=== PATIENT | female | born 1975 | race Caucasian/White ===

== ENCOUNTER 2016-12-01 22:28 | Observation (INO) | payer BC, OTHER ==
[2016-12-01] MEDS ORDERED: MORPHINE SULFATE 4 MG/ML SYRINGE IV STA (23:00)
[2016-12-01] MEDS ORDERED: SODIUM CHLORIDE 0.9% 1,000 ML IV STA (23:00)
[2016-12-01] MEDS ORDERED: NITROGLYCERIN SL TABS 0.4 MG TAB SUBLINGUAL PRN (23:00)
[2016-12-01] MEDS ORDERED: NITROGLYCERIN SL TABS 0.4 MG TAB SUBLINGUAL STA (23:00)
[2016-12-01] MEDS ORDERED: ASPIRIN 81 MG PO STA (23:00)
--- NOTE | 2016-12-01 23:05 | ED ---
General Adult HPI - General Chief complaint: Chest Pain Stated complaint: Chest Pain Time Seen by Provider: 12/01/16 22:38 Source: patient, RN notes reviewed, old records reviewed Mode of arrival: EMS Limitations: no limitations - History of Present Illness Initial comments: This is a 41-year-old female via for evaluation of chest pain, severe left- sided chest pain rating her back heaviness pressure in her chest. Patient's strong family history including multiple cardiac by family members. Patient is currently with chest pain at this time. Mild source of breath no diaphoresis. Patient states she was in the hospital on for about 8-10 hours and evaluated with multiple troponins and then discharged home - Related Data Previous Rx's Medication Instructions Recorded Aspirin 325 mg PO DAILY #30 tab 12/03/16 Atorvastatin [Lipitor] 80 mg PO DAILY #30 tab 12/03/16 Clopidogrel [Plavix] 75 mg PO DAILY #30 tab 12/03/16 Lisinopril [Zestril] 10 mg PO DAILY #30 tab 12/03/16 Metoprolol Tartrate [Lopressor] 25 mg PO BID #60 tab 12/03/16 Nitroglycerin Sl Tabs [Nitrostat] 0.4 mg SUBLINGUAL Q5M PRN #25 tab 12/03/16 Allergies Allergy/AdvReac Type Severity Reaction Status Date / Time promethazine [From Phenergan] AdvReac Unknown Verified 12/02/16 09:12 VINEGAR Allergy Unknown Uncoded 12/02/16 09:12 Review of Systems ROS Statement: Those systems with pertinent positive or pertinent negative responses have been documented in the HPI. ROS Other: All systems not noted in ROS Statement are negative. Past Medical History Past Medical History: No Reported History, Diabetes Mellitus, Fibromyalgia History of Any Multi-Drug Resistant Organisms: MRSA Past Surgical History: Appendectomy, Cholecystectomy, Hysterectomy, Orthopedic Surgery Past Psychological History: Anxiety, Depression Smoking Status: Current every day smoker Past Alcohol Use History: None Reported Past Drug Use History: None Reported - Past Family History Mother Family Medical History: Cancer, Diabetes Mellitus Additional Family Medical History / Comment(s): multiple personalities, placental cancer, heart issues Father Family Medical History: Coronary Artery Disease (CAD), Myocardial Infarction ([place] ) Daughter(s) Additional Family Medical History / Comment(s): severe depression Son(s) Additional Family Medical History / Comment(s): heart issues General Exam Limitations: no limitations General appearance: alert, in no apparent distress Head exam: Present: atraumatic, normocephalic, normal inspection Eye exam: Present: normal appearance, PERRL, EOMI. Absent: scleral icterus, conjunctival injection, periorbital swelling ENT exam: Present: normal exam, mucous membranes moist Neck exam: Present: normal inspection. Absent: tenderness, meningismus, lymphadenopathy Respiratory exam: Present: normal lung sounds bilaterally. Absent: respiratory distress, wheezes, rales, rhonchi, stridor Cardiovascular Exam: Present: regular rate, normal rhythm, normal heart sounds. Absent: systolic murmur, diastolic murmur, rubs, gallop, clicks GI/Abdominal exam: Present: soft, normal bowel sounds. Absent: distended, tenderness, guarding, rebound, rigid Extremities exam: Present: normal inspection, full ROM, normal capillary refill. Absent: tenderness, pedal edema, joint swelling, calf tenderness Back exam: Present: normal inspection Neurological exam: Present: alert, oriented X3, CN II-XII intact Psychiatric exam: Present: normal affect, normal mood Skin exam: Present: warm, dry, intact, normal color. Absent: rash Course Vital Signs 12/01/16 12/01/16 12/01/16 22:43 22:49 23:10 Temperature 98.8 F Pulse Rate 67 87 Pulse Rate [ 77 Guest Services Agent ] Respiratory 18 18 Rate Blood Pressure 135/66 126/79 O2 Sat by Pulse 97 96 Oximetry 12/01/16 12/02/16 23:56 00:00 Temperature 98.7 F Pulse Rate 68 Pulse Rate [ Guest Services Agent ] Respiratory 18 18 Rate Blood Pressure 138/64 O2 Sat by Pulse 98 Oximetry - Reevaluation(s) Reevaluation #1: 12/01/16 23:04 [place] surrounding significant medical history family history EKG Findings - EKG Comments: EKG Findings:: EKG shows normal sinus rhythm rate of 60, MO 150, QRS 96, QTC 429 Medical Decision Making - Medical Decision Making 41 female at ER for evaluation. Patient has history of chest pain coming in with chest pain today. Patient has severe chest pain, at this time patient's EKG and troponin are negative. We'll admit for cardiac observation - Lab Data Result diagrams: 12/03/16 05:25 12/03/16 05:25 Lab Results 12/01/16 12/01/16 12/01/16 Range/Units 22:40 22:40 22:40 WBC 10.8 H (3.8-10.6) k/uL RBC 4.19 (3.80-5.40) m/uL Hgb 12.8 (11.4-16.0) gm/dL Hct 38.1 (34.0-46.0) % MCV 90.9 (80.0-100.0) fL MCH 30.6 (25.0-35.0) pg MCHC 33.6 (31.0-37.0) g/dL RDW 13.3 (11.5-15.5) % Plt Count 468 H (150-450) k/uL Neutrophils % 59 % Lymphocytes % 31 % Monocytes % 5 % Eosinophils % 3 % Basophils % 1 % Neutrophils # 6.4 (1.3-7.7) k/uL Lymphocytes # 3.4 (1.0-4.8) k/uL Monocytes # 0.5 (0-1.0) k/uL Eosinophils # 0.3 (0-0.7) k/uL Basophils # 0.1 (0-0.2) k/uL PT 9.9 (9.0-12.0) sec INR 1.0 (<1.2) APTT 22.1 (22.0-30.0) sec D-Dimer 0.43 (<0.60) mg/L FEU Sodium 139 (137-145) mmol/L Potassium 3.7 (3.5-5.1) mmol/L Chloride 110 H (98-107) mmol/L Carbon Dioxide 15 L (22-30) mmol/L Anion Gap 14 mmol/L BUN 11 (7-17) mg/dL Creatinine 0.60 (0.52-1.04) mg/dL Est GFR (MDRD) Af Amer >60 (>60 ml/min/1.73 sqM) Est GFR (MDRD) Non-Af >60 (>60 ml/min/1.73 sqM) Glucose 236 H (74-99) mg/dL Estimated Ave Glu mg/dL mg/dL Hemoglobin A1c (4.2-6.1) % Calcium 9.7 (8.4-10.2) mg/dL Magnesium 1.7 (1.6-2.3) mg/dL Total Bilirubin 0.3 (0.2-1.3) mg/dL AST 14 (14-36) U/L ALT 29 (9-52) U/L Alkaline Phosphatase 83 (38-126) U/L Total Creatine Kinase (30-135) U/L CK-MB (CK-2) (0.0-2.4) ng/mL CK-MB (CK-2) Rel Index Troponin I (0.000-0.034) ng/mL Total Protein 7.2 (6.3-8.2) g/dL Albumin 3.9 (3.5-5.0) g/dL Lipase 177 (23-300) U/L 12/01/16 12/01/16 Range/Units 22:40 22:40 WBC (3.8-10.6) k/uL RBC (3.80-5.40) m/uL Hgb (11.4-16.0) gm/dL Hct (34.0-46.0) % MCV (80.0-100.0) fL MCH (25.0-35.0) pg MCHC (31.0-37.0) g/dL RDW (11.5-15.5) % Plt Count (150-450) k/uL Neutrophils % % Lymphocytes % % Monocytes % % Eosinophils % % Basophils % % Neutrophils # (1.3-7.7) k/uL Lymphocytes # (1.0-4.8) k/uL Monocytes # (0-1.0) k/uL Eosinophils # (0-0.7) k/uL Basophils # (0-0.2) k/uL PT (9.0-12.0) sec INR (<1.2) APTT (22.0-30.0) sec D-Dimer (<0.60) mg/L FEU Sodium (137-145) mmol/L Potassium (3.5-5.1) mmol/L Chloride (98-107) mmol/L Carbon Dioxide (22-30) mmol/L Anion Gap mmol/L BUN (7-17) mg/dL Creatinine (0.52-1.04) mg/dL Est GFR (MDRD) Af Amer (>60 ml/min/1.73 sqM) Est GFR (MDRD) Non-Af (>60 ml/min/1.73 sqM) Glucose (74-99) mg/dL Estimated Ave Glu mg/dL 163 mg/dL Hemoglobin A1c 7.3 H (4.2-6.1) % Calcium (8.4-10.2) mg/dL Magnesium (1.6-2.3) mg/dL Total Bilirubin (0.2-1.3) mg/dL AST (14-36) U/L ALT (9-52) U/L Alkaline Phosphatase (38-126) U/L Total Creatine Kinase 42 (30-135) U/L CK-MB (CK-2) <0.2 (0.0-2.4) ng/mL CK-MB (CK-2) Rel Index Troponin I <0.012 (0.000-0.034) ng/mL Total Protein (6.3-8.2) g/dL Albumin (3.5-5.0) g/dL Lipase (23-300) U/L - Radiology Data Radiology results: report reviewed (Chest x-ray is negative for acute disease), image reviewed Critical Care Time Critical Care Time: Yes Total Critical Care Time: 31 Disposition Clinical Impression: Chest pain Disposition: ADMITTED IP TO THIS [facility] Condition: Stable
[2016-12-01 23:11] LABS: Basophils # (A) 0.1 k/uL (0-0.2); Basophils % (A) 1 %; CH 31.9; CHCM 35.3; Eosinophils # (A) 0.3 k/uL (0-0.7); Eosinophils % (A) 3 %; HCT 38.1 % (34.0-46.0); HDW 2.46; HGB 12.8 gm/dL (11.4-16.0); Luc # (Auto) 0.16; Luc % (Auto) 2; Lymphocytes # (A) 3.4 k/uL (1.0-4.8); Lymphocytes % (A) 31 %; MCH 30.6 pg (25.0-35.0); MCHC 33.6 g/dL (31.0-37.0); MCV 90.9 fL (80.0-100.0); Mean Platelet Volume 7.4; Monocytes # (A) 0.5 k/uL (0-1.0); Monocytes % (A) 5 %; Neutrophils # (A) 6.4 k/uL (1.3-7.7); Neutrophils % (A) 59 %; RBC 4.19 m/uL (3.80-5.40); RDW 13.3 % (11.5-15.5); WBC 10.8 k/uL (3.8-10.6); WBC (Perox) 11.71
[2016-12-01 23:20] LABS: ALT 29 U/L (9-52); AST 14 U/L (14-36); Alkaline Phosphatase 83 U/L (38-126); Anion Gap 14 mmol/L; Blood Urea Nitrogen 11 mg/dL (7-17); Calcium 9.7 mg/dL (8.4-10.2); Carbon Dioxide 15 mmol/L (22-30); Chloride 110 mmol/L (98-107); Glucose 236 mg/dL (74-99); Magnesium 1.7 mg/dL (1.6-2.3); Non-African American GFR(MDRD) >60 (>60 ml/min/1.73 sqM); Potassium 3.7 mmol/L (3.5-5.1); Sodium 139 mmol/L (137-145); Total Bilirubin 0.3 mg/dL (0.2-1.3); Total Protein 7.2 g/dL (6.3-8.2)
[2016-12-01 23:28] LABS: Partial Thromboplastin Time 22.1 sec (22.0-30.0); Prothrombin Time 9.9 sec (9.0-12.0)
--- NOTE | 2016-12-01 23:28 | XR ---
ADDENDUM - Added by Elba Ralph MD on 12/01/2016 11:29 PM (-07:00) Impression: No acute process. Partially absent right distal clavicle - Correlate with history. EXAM: XR Chest, 2 Views CLINICAL HISTORY: Reason: Chest Pain TECHNIQUE: Frontal and lateral views of the chest. COMPARISON: No relevant prior studies available. FINDINGS: Lungs: Unremarkable. No consolidation. Pleural space: Unremarkable. No pneumothorax. Heart: Unremarkable. No cardiomegaly. Mediastinum: Unremarkable. Bones/joints: Partially absent distal right clavicle. IMPRESSION: Correlate with history.
[2016-12-01 23:30] LABS: Creatine Kinase 42 U/L (30-135)
[2016-12-01 23:43] LABS: Creatine Kinase MB <0.2 ng/mL (0.0-2.4); Troponin I <0.012 ng/mL (0.000-0.034)
[2016-12-02] MEDS ORDERED: MORPHINE SULFATE 4 MG/ML SYRINGE IVP STA (01:34)
[2016-12-02] MEDS ORDERED: KETOROLAC 30 MG/ML 1 ML VIAL IVP STA (01:48)
--- NOTE | 2016-12-02 02:13 | P.HPIM ---
History of Present Illness H&P Date: 12/02/16 Chief Complaint: Chest pain 41-year-old female with history of diabetes mellitus insulin admitted for complaint of chest pain started 2-1/2 days ago. Pain started about patient sitting and not doing anything particular. Not associated prior eating. Patient's pain is described as sharp right-sided anterior chest with radiation across to both shoulders, moderate intensity. No particular provoking factors identified by patient. Pain has been constant since 2 days ago and not changing in intensity or quality. Pain is worse with deep breaths and movements and better less movements. She also noticed occasional dyspnea due to pain but no any severe problems breathing cough expectoration, nausea, vomiting, heartburn, belching." Her gall bladder was removed. Patient didn't try anything for pain home. In 2010 patient had similar chest pain and underwent cardiac catheterization and was told that she does not have coronary disease and that her pain was likely due to anxiety. Since then she did not have any chest pain and She has not been taking any aspirin or statin. Yesterday she went to the ER at outside institution. They check her troponins and told her that she is again sent home on Percocet. Since her pain continued constantly she came back to MRSA department and was admitted for further. In the emergency department EKG no showed normal sinus rhythm without any significant changes and first set of troponin was negative. D-dimer was normal. Review of Systems Constitutional: Denies chills, Denies fever Eyes: denies blurred vision, denies pain Ears, nose, mouth and throat: Denies headache, Denies sore throat Cardiovascular: Reports as per HPI Gastrointestinal: Reports as per HPI Genitourinary: Denies dysuria, Denies hematuria Musculoskeletal: Denies myalgias Integumentary: Denies pruritus, Denies rash Neurological: Denies numbness, Denies weakness Psychiatric: Denies anxiety, Denies depression Endocrine: Denies fatigue, Denies weight change Past Medical History Past Medical History: Diabetes Mellitus, Fibromyalgia Additional Past Medical History / Comment(s): IBD History of Any Multi-Drug Resistant Organisms: MRSA Date of last positivie culture/infection: 2006 MDRO Source:: buttock and knee cap Past Surgical History: Appendectomy, Cholecystectomy, Hysterectomy, Orthopedic Surgery Additional Past Surgical History / Comment(s): right knee, hip, elbow and shoulder surgeries Past Anesthesia/Blood Transfusion Reactions: Previous Problems w/ Anesthesia Additional Past Anesthesia/Blood Transfusion Reaction / Comment(s): pt states that she has had a hard time "waking up" and also states that they did something different with her last surgery and she had no issues Past Psychological History: Anxiety, Depression Smoking Status: Current every day smoker Past Alcohol Use History: None Reported Additional Past Alcohol Use History / Comment(s): pt states that she has smoked on and off since the age of 19 Past Drug Use History: None Reported - Past Family History Mother Family Medical History: Cancer, Diabetes Mellitus Additional Family Medical History / Comment(s): multiple personalities, placental cancer, heart issues Father Family Medical History: Coronary Artery Disease (CAD), Myocardial Infarction ([place] ) Daughter(s) Additional Family Medical History / Comment(s): severe depression Son(s) Additional Family Medical History / Comment(s): heart issues Medications and Allergies Home Medications Medication Instructions Recorded Confirmed Type Insulin Glargine [Lantus] 10 unit SQ DAILY 12/02/16 12/02/16 History Insulin Glargine [Lantus] 15 unit SQ HS 12/02/16 12/02/16 History oxyCODONE-APAP 5-325MG [Percocet 1 tab PO Q6HR PRN 12/02/16 12/02/16 History 5-325 mg] Allergies Allergy/AdvReac Type Severity Reaction Status Date / Time promethazine [From Phenergan] AdvReac Unknown Verified 12/02/16 00:22 Physical Exam Vitals: Vital Signs Temp Pulse Pulse Resp BP BP Pulse Ox 12/02/16 00:23 97.9 F 79 18 137/76 97 12/02/16 00:00 18 12/01/16 23:56 98.7 F 68 18 138/64 98 12/01/16 23:10 87 18 126/79 96 12/01/16 22:49 77 12/01/16 22:43 98.8 F 67 18 135/66 97 Intake and Output 12/01/16 12/01/16 12/02/16 14:59 22:59 06:59 Other: Voiding Method Toilet Weight 77.111 kg Patient Weight 12/02/16 06:59 Weight 77.111 kg - Constitutional General appearance: no acute distress - EENT Eyes: EOMI - Neck Neck: no lymphadenopathy - Respiratory Respiratory: bilateral: CTA - Cardiovascular Rhythm: regular Heart sounds: normal: S1, S2 - Gastrointestinal General gastrointestinal: no organomegaly, soft, no tenderness - Neurologic Neurologic: CNII-XII intact - Musculoskeletal Musculoskeletal: strength equal bilaterally Tenderness to palpation over the costochondral joints on the right side third and fourth. Results CBC & Chem 7: 12/01/16 22:40 12/01/16 22:40 Labs: Abnormal Lab Results - Last 24 Hours (Table) 12/01/16 12/01/16 Range/Units 22:40 22:40 WBC 10.8 H (3.8-10.6) k/uL Plt Count 468 H (150-450) k/uL Chloride 110 H (98-107) mmol/L Carbon Dioxide 15 L (22-30) mmol/L Glucose 236 H (74-99) mg/dL Thrombosis Risk Factor Assmnt - DVT/VTE Prophylaxis DVT/VTE Prophylaxis: Low risk, early ambulation encouraged - Choose All That Apply Any of the Below Risk Factors Present?: Yes Each Factor Represents 1 point: Age 41-60 years, Hx of IBD, Obesity (BMI >25) Other Risk Factors: No Other congenital or acquired thrombophilia - If yes, enter type in comment: No Thrombosis Risk Factor Assessment Total Risk Factor Score: 3 Thrombosis Risk Factor Assessment Level: Moderate Risk Assessment and Plan (1) Chest pain Narrative/Plan: Chest pain atypical in nature, due to risk factors of diabetes, obesity, family history admitted for further evaluation Cardiology consulted Analgesics with addition of NSAIDs Pending a repeat troponin Continue aspirin and statin Status: Acute (2) Type 2 diabetes mellitus, with long-term current use of insulin Narrative/Plan: Patient has not been taking her insulin currently stating that her sugars are usually normal low Here in admission her blood sugar was in 236 Will order sliding scale for now on diabetic diet Preparation last A1c was around 7.1 Status: Acute Time with Patient: Greater than 30
[2016-12-02 06:27] LABS: Cholesterol 165 mg/dL (<200); HDL Cholesterol 38 mg/dL (40-60)
[2016-12-02 06:39] LABS: Creatine Kinase 33 U/L (30-135)
[2016-12-02 06:52] LABS: Creatine Kinase MB 0.2 ng/mL (0.0-2.4); Troponin I <0.012 ng/mL (0.000-0.034)
[2016-12-02 07:20] LABS: Glucose,Whole Blood 162 mg/dL (75-99)
[2016-12-02] MEDS: oxyCODONE-APAP 5-325MG 1 EACH TAB PO PRN ×2 (09:25→14:19)
[2016-12-02] MEDS: INSULIN LISPRO (humaLOG) 300 UNIT/3 ML VIAL SQ SCH ×4 (09:26→20:54)
--- NOTE | 2016-12-02 09:39 | P.PN ---
Subjective Principal diagnosis: chest pain Patient is a 41-year-old male for history of diabetes, strong family history of coronary artery disease, obesity, and fibromyalgia who presented with 2 days of chest pain. Her initial troponin and EKG were negative. She is admitted for observation. She initially presented to an outside hospital and was transferred here. She is on have dyslipidemia with an LDL greater than 70 in a known diabetic patient. She was previously on Lantus but has been having low blood sugars in dose stopped this. She has lost approximately 100 pounds in the last year secondary to stress from her recent divorce. I discussed with cardiology and patient for possible cath if her pain does not resolve by this afternoon versus stress test in a.m. Patient seen and examined at bedside. She continues to complain of right sided chest pain with radiation to her back and into her right shoulder. She does not have any Melo of breath, nausea, lightheadedness, numbness and tingling associated with this chest pain. Objective - Vital Signs Vital signs: Vital Signs Temp 97.9 F 12/02/16 08:00 Pulse 58 L 12/02/16 08:00 Resp 14 12/02/16 08:00 BP 106/54 12/02/16 08:00 Pulse Ox 96 12/02/16 08:00 Intake & Output 12/01/16 12/02/16 12/02/16 18:59 06:59 18:59 Weight 77.111 kg Other: Voiding Method Toilet # Voids 1 - Exam General: non toxic, mild distress, appears at stated age Derm: no rashes, no lesions Head: atraumatic, normocephalic, symmetric Eyes: EOMI, no lid lag, anicteric sclera ENT: no post nasal drip, no thrush Mouth: no lip lesion, mucus membranes moist Cardiovascular: Tenderness to palpation over right chest wall, S1S2 reg, no murmur, positive posterior tibial pulse bilateral, Lungs: CTA bilateral, no rhonchi, no rales , no accessory muscle use Abdominal: soft, nontender to palpation, no guarding, no appreciable organomegaly Ext: no gross muscle atrophy, no edema, no contractures Neuro: CN II-XI grossly intact, no focal neuro deficits Psych: Alert, oriented, appropriate affect - Labs CBC & Chem 7: 12/01/16 22:40 12/01/16 22:40 Labs: Abnormal Lab Results - Last 24 Hours (Table) 12/01/16 12/01/16 12/02/16 Range/Units 22:40 22:40 05:19 WBC 10.8 H (3.8-10.6) k/uL Plt Count 468 H (150-450) k/uL Chloride 110 H (98-107) mmol/L Carbon Dioxide 15 L (22-30) mmol/L Glucose 236 H (74-99) mg/dL POC Glucose (mg/dL) (75-99) mg/dL Triglycerides 163 H (<150) mg/dL HDL Cholesterol 38 L (40-60) mg/dL 12/02/16 Range/Units 07:05 WBC (3.8-10.6) k/uL Plt Count (150-450) k/uL Chloride (98-107) mmol/L Carbon Dioxide (22-30) mmol/L Glucose (74-99) mg/dL POC Glucose (mg/dL) 162 H (75-99) mg/dL Triglycerides (<150) mg/dL HDL Cholesterol (40-60) mg/dL Assessment and Plan Plan: #Atypical chest pain -Troponin and EKG negative -Discussed with cardiology patient is still having ongoing chest pain and has significant cardiovascular risk factors including diabetes mellitus, tobacco abuse, obesity, and a strong family history. Plans will be for possible cardiac cath this morning if pain does not improve or stress test in a.m. -Aspirin, statin therapy #Diabetes mellitus type 2 -Has been having hypoglycemia and therefore has been off of Lantus after 100 pound weight loss -Continue with Accu-Cheks -Check hemoglobin A1c #Dyslipidemia -LDL is greater than range for diabetic patient -We'll plan to discharge on Lipitor 40 mg daily with repeat testing by her primary care physician in 3 months. #Obesity -Has been walking and attempting to lose weight, BMI is greatly decreased #Tobacco abuse -Cessation -No nicotine replacement while having ongoing chest pain #Mild leukocytosis with thrombocytopenia -Likely reactive -We'll recheck in a.m. DVT prophylaxis: Ambulation Discussed with: Shunt, nursing, family, and Dr. Louis Anticipated discharge: 24-[address]: Home A total of 35 minutes was spent on the care of this complex patient more than 50 % of the time was spent in counseling and care coordination.
--- NOTE | 2016-12-02 09:41 | P.CRDCN ---
History of Present Illness Consult date: 12/02/16 Chief complaint: Chest discomfort History of present illness: This is a pleasant 41-year-old female patient with a past medical history significant for diabetes, as well as history of smoking, presented to the hospital complaining of chest discomfort. The patient was in her usual state of health yesterday when she was at home and started experiencing chest discomfort as a pressure in the mid of the chest was some radiation to the back without any associated symptoms of shortness of breath or sweating. The patient continues to have ongoing chest discomfort during her hospitalization. The EKG showed sinus rhythm without any significant ST or T-wave abnormalities. The cardiac enzymes were checked and came in to be within normal limits. Please note that the patient has very significant family history of coronary artery disease with her father. Past Medical History Past Medical History: Diabetes Mellitus, Fibromyalgia Additional Past Medical History / Comment(s): IBD History of Any Multi-Drug Resistant Organisms: MRSA Date of last positivie culture/infection: 2006 MDRO Source:: buttock and knee cap Past Surgical History: Appendectomy, Cholecystectomy, Hysterectomy, Orthopedic Surgery Additional Past Surgical History / Comment(s): right knee, hip, elbow and shoulder surgeries Past Anesthesia/Blood Transfusion Reactions: Previous Problems w/ Anesthesia Additional Past Anesthesia/Blood Transfusion Reaction / Comment(s): pt states that she has had a hard time "waking up" and also states that they did something different with her last surgery and she had no issues Past Psychological History: Anxiety, Depression Smoking Status: Current every day smoker Past Alcohol Use History: None Reported Additional Past Alcohol Use History / Comment(s): pt states that she has smoked on and off since the age of 19 Past Drug Use History: None Reported - Past Family History Mother Family Medical History: Cancer, Diabetes Mellitus Additional Family Medical History / Comment(s): multiple personalities, placental cancer, heart issues Father Family Medical History: Coronary Artery Disease (CAD), Myocardial Infarction (MD ) Daughter(s) Additional Family Medical History / Comment(s): severe depression Son(s) Additional Family Medical History / Comment(s): heart issues Medications and Allergies Home Medications Medication Instructions Recorded Confirmed Type oxyCODONE-APAP 5-325MG [Percocet 1 tab PO Q6HR PRN 12/02/16 12/02/16 History 5-325 mg] Allergies Allergy/AdvReac Type Severity Reaction Status Date / Time promethazine [From Phenergan] AdvReac Unknown Verified 12/02/16 09:12 VINEGAR Allergy Unknown Uncoded 12/02/16 09:12 Physical Exam Vitals: Vital Signs Temp Pulse Pulse Pulse Resp BP BP 12/02/16 08:00 97.9 F 58 L 14 106/54 12/02/16 04:00 18 12/02/16 03:50 98.2 F 66 18 111/63 12/02/16 00:23 97.9 F 79 18 137/76 12/02/16 00:00 18 12/01/16 23:56 98.7 F 68 18 138/64 12/01/16 23:10 87 18 126/79 12/01/16 22:49 77 12/01/16 22:43 98.8 F 67 18 135/66 Pulse Ox 12/02/16 08:00 96 12/02/16 04:00 12/02/16 03:50 96 12/02/16 00:23 97 12/02/16 00:00 12/01/16 23:56 98 12/01/16 23:10 96 12/01/16 22:49 12/01/16 22:43 97 Intake and Output 12/01/16 12/02/16 12/02/16 22:59 06:59 14:59 Other: Voiding Method Toilet # Voids 1 Weight 77.111 kg - Constitutional General appearance: no acute distress - Respiratory Respiratory: bilateral: CTA - Cardiovascular Rhythm: regular Heart sounds: normal: S1, S2 Results 12/01/16 22:40 12/01/16 22:40 Cardiac Enzymes 12/01/16 12/01/16 12/02/16 Range/Units 22:40 22:40 05:19 AST 14 (14-36) U/L CK-MB (CK-2) <0.2 0.2 (0.0-2.4) ng/mL Troponin I <0.012 <0.012 (0.000-0.034) ng/mL Coagulation 12/01/16 Range/Units 22:40 PT 9.9 (9.0-12.0) sec APTT 22.1 (22.0-30.0) sec Lipids 12/02/16 Range/Units 05:19 Triglycerides 163 H (<150) mg/dL Cholesterol 165 (<200) mg/dL HDL Cholesterol 38 L (40-60) mg/dL CBC 12/01/16 Range/Units 22:40 WBC 10.8 H (3.8-10.6) k/uL RBC 4.19 (3.80-5.40) m/uL Hgb 12.8 (11.4-16.0) gm/dL Hct 38.1 (34.0-46.0) % Plt Count 468 H (150-450) k/uL Comprehensive Metabolic Panel 12/01/16 Range/Units 22:40 Sodium 139 (137-145) mmol/L Potassium 3.7 (3.5-5.1) mmol/L Chloride 110 H (98-107) mmol/L Carbon Dioxide 15 L (22-30) mmol/L BUN 11 (7-17) mg/dL Creatinine 0.60 (0.52-1.04) mg/dL Glucose 236 H (74-99) mg/dL Calcium 9.7 (8.4-10.2) mg/dL AST 14 (14-36) U/L ALT 29 (9-52) U/L Alkaline Phosphatase 83 (38-126) U/L Total Protein 7.2 (6.3-8.2) g/dL Albumin 3.9 (3.5-5.0) g/dL Current Medications Generic Name Dose Route Start Last Admin Trade Name Freq PRN Reason Stop Dose Admin Aspirin 325 mg 12/02/16 09:00 Aspirin PO DAILY [facility] Atorvastatin Calcium 80 mg 12/02/16 09:00 Lipitor PO DAILY [facility] Insulin Human Lispro 0 unit 12/02/16 07:30 12/02/16 09:26 Humalog SQ 1 unit ACHS [facility] Administration Protocol Nitroglycerin 0.4 mg 12/01/16 23:00 Nitrostat SUBLINGUAL Q5M PRN Chest Pain Oxycodone/Acetaminophen 1 each 12/02/16 01:56 12/02/16 09:25 Percocet 5-325 PO 1 each Q6HR PRN Administration Pain Scale 8 to 10 Intake and Output 12/01/16 12/02/16 12/02/16 22:59 06:59 14:59 Other: Voiding Method Toilet # Voids 1 Weight 77.111 kg 12/01/16 22:40 12/01/16 22:40 Assessment and Plan Plan: This is a pleasant 41-year-old female patient with diabetes as well as history of smoking presented to the hospital complaining of chest discomfort. She has been experiencing ongoing chest discomfort at this point. She was ruled out for acute coronary event. The EKG showed sinus rhythm without ST or T-wave abnormalities. The cardiac enzymes were checked and came in to be within normal limits. If the patient continues to have chest discomfort I would proceed with a heart catheterization to rule out any severe underlying CAD. If the chest discomfort has improved I would recommend proceeding with a stress test tomorrow morning.
[2016-12-02] MEDS ORDERED: HYDROmorphone 1 MG/ML 1 ML SYRINGE IVP STA (09:50)
[2016-12-02] MEDS ORDERED: CYCLOBENZAPRINE 5 MG TAB PO PRN (09:57)
[2016-12-02 10:48] LABS: Hemoglobin A1C 7.3 % (4.2-6.1)
[2016-12-02] MEDS: ASPIRIN 325 MG TAB PO SCH (11:17)
[2016-12-02] MEDS: ATORVASTATIN 80 MG TAB PO SCH (11:17)
[2016-12-02 11:59] LABS: Glucose,Whole Blood 155 mg/dL (75-99)
[2016-12-02] MEDS ORDERED: MIDAZOLAM 2 MG/2 ML VIAL ONE (12:27)
[2016-12-02] MEDS ORDERED: VERAPAMIL 2.5 MG/ML 2 ML AMP ONE (12:27)
[2016-12-02] MEDS ORDERED: LIDOCAINE 2% INJ 20 MG/ML (20 ML MDV) ONE (12:33)
[2016-12-02] MEDS ORDERED: SODIUM CHLORIDE 0.9% 1,000 ML IV ONE (12:51)
[2016-12-02] MEDS ORDERED: MIDAZOLAM 2 MG/2 ML VIAL IV ONE (12:55)
[2016-12-02] MEDS ORDERED: LIDOCAINE 2% INJ 20 MG/ML SQ ONE (13:01)
[2016-12-02] MEDS ORDERED: CLOPIDOGREL 75 MG TAB ONE (13:13)
[2016-12-02] MEDS ORDERED: BIVALIRUDIN BOLUS 250 MG/50 ML IV ONE (13:14)
[2016-12-02] MEDS ORDERED: BIVALIRUDIN 250 MG in SODIUM CHLORIDE 0.9% 50 ML IV ONE (13:15)
[2016-12-02] MEDS ORDERED: CLOPIDOGREL 75 MG TAB PO ONE (13:18)
[2016-12-02] MEDS ORDERED: NITROGLYCERIN 1000MCG/10ML SYRINGE INTRACORON ONE (13:19)
[2016-12-02] MEDS ORDERED: IOHEXOL 350 MG/ML 125ML BOTTLE INJ ONE (13:35)
[2016-12-02] MEDS ORDERED: NITROGLYCERIN SL TABS 0.4 MG TAB SUBLINGUAL PRN (13:41)
[2016-12-02] MEDS ORDERED: MAG HYDROX/AL HYDROX/SIMETH 30 ML CUP PO PRN (13:41)
[2016-12-02] MEDS ORDERED: RX INFO: IV CONTRAST WAS GIVEN 1 EACH MISC MISCELLANE PRN (13:41)
[2016-12-02] MEDS ORDERED: ZOLPIDEM 5 MG TAB PO PRN (13:41)
[2016-12-02] MEDS ORDERED: ATROPINE SULFATE 0.1 MG/ML 10ML SYRINGE IV PRN (13:41)
[2016-12-02] MEDS ORDERED: SODIUM CHLORIDE 0.9% 1,000 ML IV SCH (13:45)
--- NOTE | 2016-12-02 15:36 | CC ---
CARDIAC CATHETERIZATION REPORT DATE OF SERVICE: 12/02/2016. PERFORMING PHYSICIAN: Dennis Louis MD, clinical manager home care. PROCEDURE PERFORMED: 1. Selective right and left coronary angiogram. 2. Left heart catheterization. 3. Left ventriculography. 4. Successful stenting of the mid LAD using 3.25 x 15 mm Xience TITA with good angiographic results. INDICATIONS: This is a pleasant 41-year-old female patient who presented to the hospital with chest discomfort and continues to have ongoing chest discomfort. The EKG and enzymes were unremarkable. In view of the continuous chest discomfort, I recommended proceeding with a heart catheterization. APPROACH: Right common femoral artery. COMPLICATIONS: None. LEVEL OF SEDATION: Moderate with sedation length of 35 minutes for the whole procedure. PROCEDURE DESCRIPTION: After obtaining informed consent, the patient was brought to the cardiac labor representative. The right common femoral artery was cannulated using micropuncture technique. The micropuncture wire passed easily. Then I placed a 6-Thai sheath in the right common femoral artery. Subsequently, I did selective right common femoral artery angiogram before I did selective right and left coronary angiogram using JR4 and JL4 catheters. After that, I did left heart catheterization and left ventriculography using 6-Thai pigtail catheter. Then I did intervene on the LAD, please see a separate paragraph for that. SELECTIVE CORONARY ANGIOGRAM: 1. The right coronary artery is a large caliber vessel. It is a dominant vessel. It is angiographically normal. It bifurcates distally into PDA and PLV branches. Both are angiographically normal. 2. The left main is angiographically normal. It bifurcates into the circumflex and left anterior descending artery. 3. The left circumflex is a large caliber vessel and it is a nondominant vessel. The left circumflex system is angiographically normal. It gives rise into 2 obtuse marginal branches, they are angiographically normal. 4. Left anterior descending artery. The proximal LAD appeared to have a plaque in the range of 30% to 40%. It gives rise into a large diagonal branch which appears to have mild disease in the proximal portion. The mid LAD after the diagonal has an eccentric lesion, appeared to be in the range of 90%. The LAD distally is angiographically normal. The LAD after the lesion has another diagonal, which is a second diagonal, and seems to be angiographically normal. HEMODYNAMICS: The left ventricular end-diastolic pressure was 20 mmHg. No gradient was identified across aortic valve. LEFT VENTRICULOGRAPHY: Left ventriculography was performed in the PHIPPS projection using a power injection. Left ventricular systolic function overall is mildly impaired with EF between 45% to 50% with mild apical hypokinesia. PERCUTANEOUS CORONARY INTERVENTION OF LEFT ANTERIOR DESCENDING: Anticoagulation was initiated using Angiomax. Subsequently, I took JL4 guide and the left main was engaged with a whisper wire. Whisper wire was used to wire the LAD. After that, I did PTCA ballooning using the 3.0 x 12 mm balloon. Subsequently, I deployed a 3.25 x 15 mm Xience TITA where the stent was positioned under fluoroscopic guidance and deployed under 14 atmospheres for 25 seconds with the following angiogram showing good angiographic results. The procedure was completed without any complications. CONCLUSION: 1. Normal right coronary artery. 2. Normal left main coronary artery. 3. Normal left circumflex coronary artery. 4. Severe eccentric disease involving the mid left anterior descending. 5. Successful stenting of the mid LAD using 3.25 x 15 mm Xience TTIA with good angiographic results. POST PROCEDURE MANAGEMENT: 1. Dual anti-platelet therapy. 2. Risk factor modifications and follow up with the patient. MMODL / IJN: [id number] /
[2016-12-02 16:50] LABS: Glucose,Whole Blood 176 mg/dL (75-99)
[2016-12-02] MEDS: METOPROLOL TARTRATE 25 MG TAB PO SCH (20:28)
[2016-12-02 20:50] LABS: Glucose,Whole Blood 189 mg/dL (75-99)
[2016-12-03 05:40] LABS: Glucose,Whole Blood 179 mg/dL (75-99)
[2016-12-03 06:14] LABS: Basophils # (A) 0.1 k/uL (0-0.2); Basophils % (A) 1 %; CH 30.7; CHCM 33.4; Eosinophils # (A) 0.3 k/uL (0-0.7); Eosinophils % (A) 3 %; HCT 34.4 % (34.0-46.0); HDW 2.55; HGB 11.7 gm/dL (11.4-16.0); Luc # (Auto) 0.13; Luc % (Auto) 1; Lymphocytes # (A) 2.7 k/uL (1.0-4.8); Lymphocytes % (A) 31 %; MCH 31.3 pg (25.0-35.0); MCHC 33.9 g/dL (31.0-37.0); MCV 92.4 fL (80.0-100.0); Mean Platelet Volume 6.4; Monocytes # (A) 0.4 k/uL (0-1.0); Monocytes % (A) 4 %; Neutrophils # (A) 5.2 k/uL (1.3-7.7); Neutrophils % (A) 60 %; RBC 3.73 m/uL (3.80-5.40); RDW 12.8 % (11.5-15.5); WBC 8.7 k/uL (3.8-10.6); WBC (Perox) 8.72
[2016-12-03 06:23] LABS: Anion Gap 6 mmol/L; Blood Urea Nitrogen 11 mg/dL (7-17); Carbon Dioxide 18 mmol/L (22-30); Chloride 110 mmol/L (98-107); Glucose 162 mg/dL (74-99); Non-African American GFR(MDRD) >60 (>60 ml/min/1.73 sqM); Potassium 4.2 mmol/L (3.5-5.1); Sodium 134 mmol/L (137-145)
[2016-12-03] MEDS: ATORVASTATIN 80 MG TAB PO SCH (08:22)
[2016-12-03] MEDS: INSULIN LISPRO (humaLOG) 300 UNIT/3 ML VIAL SQ SCH ×2 (08:22→12:21)
[2016-12-03] MEDS: ASPIRIN 325 MG TAB PO SCH (08:22)
[2016-12-03] MEDS: METOPROLOL TARTRATE 25 MG TAB PO SCH (08:22)
[2016-12-03] MEDS ORDERED: LISINOPRIL 10 MG TAB PO SCH (09:00)
[2016-12-03 09:38] VITALS: BP 144/72; PULSE 60; RESP 18; TEMP 97.8
--- NOTE | 2016-12-03 10:12 | P.PN ---
Subjective Principal diagnosis: Chest pain This is a 41-year-old female with history of diabetes, nicotine dependence, who presented to the hospital with symptoms of chest discomfort. Cardiac enzymes and troponins were negative, EKG showed normal sinus rhythm with no acute changes. Because of the persistence in chest pain, patient was taken to the cardiac catheterization lab yesterday by Dr. Young where the patient was found to have a lesion in her LAD for which she underwent angioplasty with stenting. EKG this morning shows a normal sinus rhythm with no changes from post-PCI. Patient denies any chest discomfort. Blood pressure 142/70 with a heart rate in the 60s. CBC normal. Potassium 4.2, BUN 11, creatinine 0.6. The patient may be able to be discharged home today from cardiology's perspective, we will make her a follow-up appointment to see Dr. Young in the office in one week. Objective - Vital Signs Vital signs: Vital Signs Temp 97.8 F 12/03/16 08:00 Pulse 60 12/03/16 08:00 Resp 18 12/03/16 08:00 BP 144/72 12/03/16 08:00 Pulse Ox 98 12/03/16 08:00 Intake & Output 12/02/16 12/03/16 12/03/16 18:59 06:59 18:59 Intake Total 178 2050 120 Output Total 850 Balance 178 1200 120 Weight 86 kg Intake: IV 178 Intake, IV Titration 1500 Amount Sodium Chloride 0.9% 1, 1500 000 ml @ 100 mls/hr IV . Q10H JASON Rx#:[id number] Oral 550 120 Output: Urine 850 Other: Voiding Method Toilet Toilet Toilet # Voids 1 1 - Exam PHYSICAL EXAMINATION: HEENT: Head is atraumatic, normocephalic. Pupils equal, round. Neck is supple. There is no elevated jugular venous pressure. HEART EXAMINATION: Heart S1, S2 normal. No murmur or gallop heard. CHEST EXAMINATION: Lungs are clear to auscultation and precussion. No chest wall tenderness is noted on palpation or with deep breathing. ABDOMEN: Soft, nontender. Bowel sounds are heard. No organomegaly noted. Right groin soft, no evidence of any hematoma. EXTREMITIES: 2+ peripheral pulses with no evidence of peripheral edema and no calf tenderness noted. NEUROLOGIC patient is awake, alert and oriented -3. . - Labs CBC & Chem 7: 12/03/16 05:25 12/03/16 05:25 Labs: Abnormal Lab Results - Last 24 Hours (Table) 12/01/16 12/02/16 12/02/16 Range/Units 22:40 11:55 16:39 RBC (3.80-5.40) m/uL Sodium (137-145) mmol/L Chloride (98-107) mmol/L Carbon Dioxide (22-30) mmol/L Glucose (74-99) mg/dL POC Glucose (mg/dL) 155 H 176 H (75-99) mg/dL Hemoglobin A1c 7.3 H (4.2-6.1) % Calcium (8.4-10.2) mg/dL 12/02/16 12/03/16 12/03/16 Range/Units 20:48 05:25 05:25 RBC 3.73 L (3.80-5.40) m/uL Sodium 134 L (137-145) mmol/L Chloride 110 H (98-107) mmol/L Carbon Dioxide 18 L (22-30) mmol/L Glucose 162 H (74-99) mg/dL POC Glucose (mg/dL) 189 H (75-99) mg/dL Hemoglobin A1c (4.2-6.1) % Calcium 8.0 L (8.4-10.2) mg/dL 12/03/16 Range/Units 05:38 RBC (3.80-5.40) m/uL Sodium (137-145) mmol/L Chloride (98-107) mmol/L Carbon Dioxide (22-30) mmol/L Glucose (74-99) mg/dL POC Glucose (mg/dL) 179 H (75-99) mg/dL Hemoglobin A1c (4.2-6.1) % Calcium (8.4-10.2) mg/dL Assessment and Plan (1) Nicotine dependence Status: Acute (2) Presence of stent in LAD coronary artery Status: Acute (3) Hyperlipemia Status: Acute (4) Chest pain Status: Acute (5) Type 2 diabetes mellitus, with long-term current use of insulin Status: Acute Plan: From cardiology's perspective, patient may be able to be discharged home today. We'll make her a follow-up appointment to see Dr. Young in the office in one week. She will be discharged home on aspirin 325 mg daily, Lipitor 80 mg daily , Plavix 75 mg daily, lisinopril 10 mg daily, metoprolol tartrate 25 mg one tablet by mouth twice a day, and sublingual nitroglycerin as needed for chest pain. She has been educated regarding the importance of nicotine cessation as well as medication compliance. Prescriptions have been provided for all of the above medications and she has been educated regarding them. DNP note has been reviewed, I agree with a documented findings and plan of care. Patient was seen and examined.
[2016-12-03 10:25] VITALS: BMI 32.5
--- NOTE | 2016-12-03 10:33 | ECHOF ---
Referral Reason:chest pain MEASUREMENTS -------- HEIGHT: 165.1 cm WEIGHT: 85.7 kg BP: 116/88 RVIDd: 2.8 cm (< 3.3) IVSd: 1.0 cm (0.6 - 1.1) LVIDd: 4.3 cm (3.9 - 5.3) LVPWd: 1.0 cm (0.6 - 1.1) IVSs: 1.4 cm LVIDs: 3.2 cm LVPWs: 1.3 cm LA Diam: 3.0 cm (2.7 - 3.8) LAESV Index (A-L): 25.19 ml/m Ao Diam: 2.6 cm (2.0 - 3.7) AV Cusp: 1.5 cm (1.5 - 2.6) LA Diam: 3.5 cm (2.7 - 3.8) MV EXCURSION: 16.095 mm (> 18.000) MV EF SLOPE: 102 mm/s (70 - 150) EPSS: 0.2 cm MV E Felipe: 0.96 m/s MV DecT: 180 ms MV A Felipe: 0.67 m/s MV E/A Ratio: 1.43 RAP: 5.00 mmHg RVSP: 29.62 mmHg FINDINGS -------- Sinus rhythm. This was a technically good study. LV size, wall thickness and systolic function are normal, with an EF greater than 55%. The left ventricular size is normal. The right ventricle is normal in size. Normal LA size by volume 22+/-6 ml/m2. The right atrial size is normal. The aortic valve is trileaflet, and appears structurally normal. No aortic stenosis or regurgitation. Mild mitral regurgitation is present. Mild tricuspid regurgitation present. There is no evidence of pulmonary hypertension. The right ventricular systolic pressure, as measured by Doppler, is 29.62mmHg. Trace/mild (physiologic) pulmonic regurgitation. The aortic root size is normal. There is no pericardial effusion. CONCLUSIONS -------- 1. LV size, wall thickness and systolic function are normal, with an EF greater than 55%. 2. There is no pericardial effusion. 3. The left ventricular size is normal. 4. The aortic valve is trileaflet, and appears structurally normal. No aortic stenosis or regurgitation. 5. Mild mitral regurgitation is present. 6. Mild tricuspid regurgitation present. 7. There is no evidence of pulmonary hypertension. 8. The right ventricular systolic pressure, as measured by Doppler, is 29.62mmHg. 9. Trace/mild (physiologic) pulmonic regurgitation. 10. The aortic root size is normal. REHABILITATION WORKER: Bhumika Reyes RDCS
[2016-12-03 11:31] LABS: Glucose,Whole Blood 177 mg/dL (75-99)
--- NOTE | 2016-12-03 11:44 | P.DS ---
Providers Date of admission: 12/01/16 23:20 Expected date of discharge: 12/03/16 Attending physician: Ximena Vallecillo, DO Consults: 12/01/16 23:00 Consult Physician Urgent Consulting Provider: Hossein Brown Consult Reason/Comments: cp Do you want consulting provider notified?: Yes 12/02/16 13:41 Consult Physician Routine Consulting Provider: [facility] Consult Reason/Comments: Post Interventional patient Do you want consulting provider notified?: Already Contacted Primary care physician: Physician Nonstaff Hospital Course: 41 year old female with history of DM, smoking, presented with chest pain which was persistent without any abnormality in cardiac enzymes, EKG showed T wave inversion in Lead III, without any other ST abnormalities. Cardiology evaluated the patient and Left heart cath performed due to persistent chest pain. stent was deployed in LAD. patient tolerated procedure and was monitored for another day. This morning patient was seen and examined, doing well, no new complaints , denies any ongoing chest pain or trouble breathing, denies any fever or chills, eager to go home. Patient counseled to quit smoking and she agrees, she denies any cravings at this point, and willing to continue to abstain fromsmoking I counseled her regarding DM control, in light of her A1C being 7.3, she uses lantus at home on an as needed basis , I explained that this is not the proper way of using lantus, and besides I recommended to her oral hypoglycemics and to start with metformin , however, the patient and her mother were both against using metformin and preferred to continue with lantus for now until discussed further with her PCP. I offered them some resources and suggestions for local PCPs who are accepting new patients. as patient is from out [place] town . Constitutional: vital signs stable, Not in acute distress, pleasant, conversant Lungs: Clear to auscultation bilaterally, clear to percussion, normal respiratory effort no use of accessory muscles Cardiovascular: Regular rate and rhythm, no murmurs, no gallops, no rubs, no peripheral edema Extremities: No digital cyanosis or clubbing, peripheral pulses palpable and equal over bilateral radial arteries and dorsalis pedis artery, no calf muscle tenderness Psych: Alert, oriented to place, person and time Right groin examined exercise for left heart cath was unremarkable Patient was discharged home, in stable clinical condition, prescriptions sent to [facility]. More than 35 minutes were spent discharging this patient, and more than 50% of the time was spent in counseling the patient and family and in coordinating care. Pertinent Studies: ECHOcardiogram , LVEF 55% Procedures: left heart cath with stent deployed LAD Patient Condition at Discharge: Stable Plan - Discharge Summary New Discharge Prescriptions: New Aspirin 325 mg PO DAILY #30 tab Atorvastatin [Lipitor] 80 mg PO DAILY #30 tab Clopidogrel [Plavix] 75 mg PO DAILY #30 tab Lisinopril [Zestril] 10 mg PO DAILY #30 tab Metoprolol Tartrate [Lopressor] 25 mg PO BID #60 tab Nitroglycerin Sl Tabs [Nitrostat] 0.4 mg SUBLINGUAL Q5M PRN #25 tab PRN Reason: Chest Pain Discontinued oxyCODONE-APAP 5-325MG [Percocet 5-325 mg] 1 tab PO Q6HR PRN PRN Reason: Pain Discharge Medication List Aspirin 325 mg PO DAILY #30 tab 12/03/16 [Rx] Atorvastatin [Lipitor] 80 mg PO DAILY #30 tab 12/03/16 [Rx] Clopidogrel [Plavix] 75 mg PO DAILY #30 tab 12/03/16 [Rx] Lisinopril [Zestril] 10 mg PO DAILY #30 tab 12/03/16 [Rx] Metoprolol Tartrate [Lopressor] 25 mg PO BID #60 tab 12/03/16 [Rx] Nitroglycerin Sl Tabs [Nitrostat] 0.4 mg SUBLINGUAL Q5M PRN #25 tab 12/03/16 [Rx ] Follow up Appointment(s)/Referral(s): Dennis Louis MD [STAFF PHYSICIAN] - 1 Week Nonstaff,Physician [Primary Care Provider] - 1-2 days Kristel Phipps MD [STAFF PHYSICIAN] - 1 Week Patient Instructions/Handouts: Heart Catheterization (DC), How to Stop Smoking (GEN) Activity/Diet/Wound Care/Special Instructions: activity as tolerated heart healthy diet, low sodium , low fat Discharge Disposition: HOME SELF-CARE
[2016-12-03] MEDS ORDERED: CLOPIDOGREL 75 MG TAB PO SCH (13:00)
== END 2016-12-03 13:14 | disposition home or self-care (01) ==
LOC: EC 22:28 → 3SUR 23:20 → 6SEL 12-02 13:53
PROVIDERS: ADMIT Internal Medicine; ATTEND Internal Medicine
DX: R07.89 Other chest pain (principal); I25.10 Atherosclerotic heart disease of native coronary artery without angina pectoris; F17.200 Nicotine dependence, unspecified, uncomplicated; F41.9 Anxiety disorder, unspecified; F32.9 Major depressive disorder, single episode, unspecified; E11.9 Type 2 diabetes mellitus without complications; D69.6 Thrombocytopenia, unspecified; D72.829 Elevated white blood cell count, unspecified; E66.9 Obesity, unspecified; M79.7 Fibromyalgia; E78.5 Hyperlipidemia, unspecified; Z86.14 Personal history of Methicillin resistant Staphylococcus aureus infection; Z82.49 Family history of ischemic heart disease and other diseases of the circulatory system; Z79.899 Other long term (current) drug therapy; Z79.82 Long term (current) use of aspirin; Z79.02 Long term (current) use of antithrombotics/antiplatelets; Z88.8 Allergy status to other drugs, medicaments and biological substances; Z79.4 Long term (current) use of insulin; Z68.32 Body mass index [BMI] 32.0-32.9, adult; Z71.3 Dietary counseling and surveillance
CPT/HCPCS: 99152; 99153; 96376; 96375; 96374; 99291; 36415; 93005; 93306; 93458; 85379; 80061; 80053; 80048; 83036; 82550 ×2; 82553 ×2; 83690; 83735; 84484 ×2; 85025 ×2; 85610; 85730; 71020; G0378 ×3; C9600; C1769 ×3; C1887; C1725; C1894; C1874; C1760; J2001; J2250; J2270 ×2; J1885; J1170; J0583; Q9967

== ENCOUNTER → 2017-05-02 | Day surgery (SDC) | payer OTHER ==
[2017-05-01 09:32] VITALS: BMI 32.2
[~2017-05-02] MED LIST: ALPRAZolam 0.25 MG TAB PO PRN; ALPRAZolam 0.5 MG TAB PO PRN; ASPIRIN 325 MG TAB PO STA; ATORVASTATIN 80 MG TAB PO STA; HEPARIN SODIUM 1,000 UN/ML (10ML VL) IV ONE; HEPARIN SODIUM 1,000 UN/ML (10ML VL) ONE; IOHEXOL 350 MG/ML 125ML BOTTLE INJ ONE; LIDOCAINE 2% INJ 20 MG/ML (20 ML MDV) ONE; METOPROLOL TARTRATE 25 MG TAB PO STA; MIDAZOLAM 2 MG/2 ML VIAL IV ONE; MIDAZOLAM 2 MG/2 ML VIAL ONE; NITROGLYCERIN 1000MCG/10ML SYRINGE INTRAARTER ONE; NITROGLYCERIN SL TABS 0.4 MG TAB SUBLINGUAL PRN; RX INFO: IV CONTRAST WAS GIVEN 1 EACH MISC MISCELLANE PRN; SODIUM CHLORIDE 0.9% 1,000 ML IV SCH; SODIUM CHLORIDE 0.9% 1,000 ML in EMPTY BAG 1 BAG IV ONE; VERAPAMIL 2.5 MG/ML 2 ML AMP ONE; VERAPAMIL SYRINGE (5 MG/10 ML) INTRAARTER ONE; fentaNYL (PF) 50 MCG/ML 2 ML AMP ONE; fentaNYL (PF) 50 MCG/ML 5 ML AMP IVP ONE
[2017-05-02 11:40] LABS: Glucose,Whole Blood 194 mg/dL (75-99)
[2017-05-02 11:41] VITALS: RESP 18; TEMP 98.2
[2017-05-02 11:50] LABS: Basophils # (A) 0.1 k/uL (0-0.2); Basophils % (A) 1 %; Eosinophils # (A) 0.3 k/uL (0-0.7); Eosinophils % (A) 3 %; Lymphocytes # (A) 2.9 k/uL (1.0-4.8); Lymphocytes % (A) 32 %; MCH 30.1 pg (25.0-35.0); MCHC 33.4 g/dL (31.0-37.0); MCV 89.9 fL (80.0-100.0); Mean Platelet Volume 6.4; Monocytes # (A) 0.4 k/uL (0-1.0); Monocytes % (A) 5 %; Neutrophils # (A) 5.1 k/uL (1.3-7.7); Neutrophils % (A) 57 %; Platelet Count 408 k/uL (150-450); RBC 4.67 m/uL (3.80-5.40); RDW 12.8 % (11.5-15.5); WBC 8.9 k/uL (3.8-10.6)
[2017-05-02] MEDS: fentaNYL (PF) 50 MCG/ML 2 ML AMP IV ONE ×2 (11:52→12:17)
[2017-05-02] MEDS: LIDOCAINE 2% INJ 20 MG/ML SQ ONE ×2 (11:57→12:17)
[2017-05-02] MEDS: VERAPAMIL SYRINGE (5 MG/10 ML) INTRAARTER ONE ×2 (12:00→12:04)
[2017-05-02 12:01] LABS: Anion Gap 11 mmol/L; Carbon Dioxide 21 mmol/L (22-30); Chloride 106 mmol/L (98-107); Glucose 187 mg/dL (74-99); Sodium 138 mmol/L (137-145)
[2017-05-02 12:03] LABS: Blood Urea Nitrogen 8 mg/dL (7-17); Potassium 4.6 mmol/L (3.5-5.1)
--- NOTE | 2017-05-02 13:09 | CC ---
CARDIAC CATHETERIZATION REPORT DATE OF SERVICE: 05/02/2017 PERFORMING PHYSICIAN: Dennis Louis MD, Health Inspector Food. PROCEDURE PERFORMED: 1. Selective right and left coronary angiogram. 2. Left heart catheterization. 3. Left ventriculography. INDICATION: This is a pleasant, 42-year-old female patient who is known to have coronary artery disease with stenting of the LAD, was experiencing intermittent episodes of chest discomfort concerning for angina. For that reason, was brought today to undergo a heart catheterization. APPROACH: 1. Right radial artery. 2. Right common femoral artery. COMPLICATION: None. LEVEL OF SEDATION: Moderate with sedation length of 37 minutes. PROCEDURE DESCRIPTION: After obtaining an informed consent, the patient was brought to the Cardiac Screw Driver Operator. Initially, the right radial artery was cannulated using micropuncture technique and a micropuncture wire passed easily, then I placed a 6-[place] African sheath in the right radial artery. Subsequently, I gave the patient 2 mg of verapamil IA and 10,000 units of heparin IV. After that, I did selective right coronary angiogram using JR4 catheter. I attempted engaging in the left coronary system using JL3.5 and multipurpose catheter, but I was unable to cross the brachial artery in the right arm. Because of that, I decided to abort the radial access and access the right common femoral artery. At that point, the right common femoral artery was cannulated using micropuncture technique, under ultrasound guidance, the micropuncture wire passed easily, then I placed a 6-[place] African sheath in the right common femoral artery. After that, I did selective left coronary angiogram using JL3.5 catheter. After that, I did left heart catheterization and left ventriculography using 5-Central African pigtail catheter. The procedure was completed without any complication. SELECTIVE CORONARY ANGIOGRAM: 1. The RCA is a large caliber vessel and it is a dominant vessel. The RCA is angiographically normal. It bifurcates distally into PDA and PLV branches, both are angiographically normal. 2. The left main is angiographically normal. It bifurcates into a nondominant left circumflex and left anterior descending artery. 3. The left circumflex is a large caliber vessel. It is a nondominant vessel. The left circumflex system is angiographically normal. 4. The left anterior descending artery, the proximal LAD has mild disease only. Gives rise into a medium-sized diagonal branch which has mild ostial disease. The mid LAD is stented and the stent is patent. The LAD distally is angiographically normal. The LAD in the midportion gives rise into a medium-sized diagonal branch which seems to be angiographically normal. HEMODYNAMICS: The left ventricular end-diastolic pressure was 12 mmHg and no gradient was identified across the aortic valve. Left ventriculography was performed in the PHIPPS projection and using a power injection. The ventricular systolic function is normal with EF about 50%. CONCLUSION: 1. Patent stent in the mid left anterior descending artery. 2. Normal left ventricular end-diastolic pressure. 3. Normal left ventricular systolic function. POSTPROCEDURE MANAGEMENT: Medical treatment and follow up with the patient. MMODL / IJN: [id number] /
[2017-05-02 13:29] LABS: Glucose,Whole Blood 181 mg/dL (75-99)
--- NOTE | 2017-05-02 13:45 | LTR ---
May 02, 2017 Re: Charito Campbell Dear Dr. Phipps: As we discussed on the phone, Ms. Charito Campbell underwent heart catheterization and that revealed patent stent in the mid LAD. Maximized medical treatment is recommended at this point of time. I want to thank you for allowing me to participate in her care and please do not hesitate to call if you have any question or concern. Sincerely, MD LUCINA Osorio / QUINTENN: [id number] /
[2017-05-02 16:27] VITALS: BP 138/85; PULSE 56
== END ==
LOC: CATHCVL 10:50
PROVIDERS: ATTEND Internal Medicine Interventional Cardiology
DX: I25.110 Atherosclerotic heart disease of native coronary artery with unstable angina pectoris (principal); Z95.5 Presence of coronary angioplasty implant and graft; E78.00 Pure hypercholesterolemia, unspecified; E78.5 Hyperlipidemia, unspecified; I10 Essential (primary) hypertension; E11.9 Type 2 diabetes mellitus without complications; Z82.49 Family history of ischemic heart disease and other diseases of the circulatory system; Z79.02 Long term (current) use of antithrombotics/antiplatelets; Z79.82 Long term (current) use of aspirin; Z79.899 Other long term (current) drug therapy; Z79.4 Long term (current) use of insulin; Z87.891 Personal history of nicotine dependence
CPT/HCPCS: 93458; 80048; 85025; C1894 ×2; C1769 ×2; C1760; J2001; J2250; J3010; J1644; Q9967

== ENCOUNTER → 2018-02-25 | Outpatient (CLI) | payer OTHER ==
[2018-02-25 20:10] LABS: LDL Cholesterol,Calculated 122.6 mg/dL (0.0-131.0); VLDL Calculation 32.4 mg/dL (5.00-40.00)
== END | disposition home or self-care (01) ==
LOC: LABWHC1 11:26
PROVIDERS: ATTEND Internal Medicine Interventional Cardiology
DX: E78.2 Mixed hyperlipidemia (principal)
CPT/HCPCS: 36415; 80061; 84450; 84460

== ENCOUNTER 2018-07-13 17:30 | Observation (INO) | payer OTHER ==
--- NOTE | 2018-07-13 18:12 | ED ---
Chest Pain HPI - General Chief Complaint: Chest Pain Stated Complaint: CHEST PAIN Time Seen by Provider: 07/13/18 17:32 Source: patient, RN notes reviewed, old records reviewed Mode of arrival: EMS Limitations: no limitations - History of Present Illness Initial Comments: This is a 43-year-old female who is evident transfer. Patient is accepted in transfer of chest pain. Patient has history of prior [place] with stents. Patient also has high cholesterol diabetes and multiple cardiac risk factors. Upon transfer arrival, patient is not in any acute pain, no shortness of breath. Patient denies diaphoresis with chest pain no nausea vomiting. No other complaints no fever. No recent cardiac evaluation MD Complaint: chest pain -: hour(s) Onset: during rest, during exertion Pain Location: substernal, left chest Pain Radiation: LUE Severity: mild Severity scale (1-10): 2 Quality: tightness, heaviness Consistency: constant Improves With: nothing Worsens With: nothing Anginal Symptoms: sense of impending doom Other Symptoms: palpitations Treatments Prior to Arrival: aspirin, nitroglycerin - Related Data Home Medications Medication Instructions Recorded Confirmed Aspirin EC [Ecotrin Low Dose] 81 mg PO DAILY 07/13/18 07/13/18 Insulin Glargine [Lantus] 5 unit SQ BID 07/13/18 07/13/18 Previous Rx's Medication Instructions Recorded Nitroglycerin Sl Tabs [Nitrostat] 0.4 mg SUBLINGUAL Q5M PRN #25 tab 12/03/16 Aspirin 81 mg PO DAILY chew 07/14/18 Atorvastatin [Lipitor] 80 mg PO DAILY #30 tab 07/14/18 Isosorbide Mononitrate ER [Imdur] 30 mg PO DAILY #30 tab.er.24h 07/14/18 Metoprolol Tartrate [Lopressor] 25 mg PO BID #60 tab 07/14/18 Nitroglycerin Sl Tabs [Nitrostat] 0.4 mg SUBLINGUAL Q5M PRN tab 07/14/18 Allergies Allergy/AdvReac Type Severity Reaction Status Date / Time promethazine [From Phenergan] Allergy "MUSCLE Verified 07/13/18 18:07 CONVULSIONS" pregabalin [From Lyrica] AdvReac SUICIDAL Verified 07/13/18 18:07 THOUGHTS VINEGAR AdvReac "SEVERE Uncoded 02/15/18 11:08 HEADACHE, NAUSEA" Review of Systems ROS Statement: Those systems with pertinent positive or pertinent negative responses have been documented in the HPI. ROS Other: All systems not noted in ROS Statement are negative. EKG Findings - EKG Comments: EKG Findings:: EKG shows sinus rhythm rate of 70, [place] 140. QRS 72, QTc 465 Past Medical History Past Medical History: Coronary Artery Disease (CAD), Chest Pain / Angina, Diabetes Mellitus, Fibromyalgia, GERD/Reflux, Hyperlipidemia, Hypertension Additional Past Medical History / Comment(s): IBS History of Any Multi-Drug Resistant Organisms: MRSA Date of last positivie culture/infection: 2006 MDRO Source:: buttock and knee cap Past Surgical History: Appendectomy, Cholecystectomy, Heart Catheterization, Heart Catheterization With Stent, Hysterectomy, Orthopedic Surgery Additional Past Surgical History / Comment(s): right knee, hip, elbow and shoulder surgeries Past Anesthesia/Blood Transfusion Reactions: Previous Problems w/ Anesthesia Additional Past Anesthesia/Blood Transfusion Reaction / Comment(s): PAST HX OF HAVING A "HARD TIME WAKING UP" Date of Last Stent Placement:: 11/2016 Past Psychological History: Anxiety, Depression Smoking Status: Former smoker Past Alcohol Use History: Occasional Past Drug Use History: None Reported - Past Family History Mother Family Medical History: Cancer, Diabetes Mellitus Additional Family Medical History / Comment(s): multiple personalities, placental cancer, heart issues Father Family Medical History: Coronary Artery Disease (CAD), Myocardial Infarction ([place]) Daughter(s) Additional Family Medical History / Comment(s): severe depression Son(s) Additional Family Medical History / Comment(s): heart issues General Exam Limitations: no limitations General appearance: alert, in no apparent distress Head exam: Present: atraumatic, normocephalic, normal inspection Eye exam: Present: normal appearance, PERRL, EOMI. Absent: scleral icterus, conjunctival injection, periorbital swelling ENT exam: Present: normal exam, mucous membranes moist Neck exam: Present: normal inspection. Absent: tenderness, meningismus, lymphadenopathy Respiratory exam: Present: normal lung sounds bilaterally. Absent: respiratory distress, wheezes, rales, rhonchi, stridor Cardiovascular Exam: Present: regular rate, normal rhythm, normal heart sounds. Absent: systolic murmur, diastolic murmur, rubs, gallop, clicks GI/Abdominal exam: Present: soft, normal bowel sounds. Absent: distended, tenderness, guarding, rebound, rigid Extremities exam: Present: normal inspection, full ROM, normal capillary refill. Absent: tenderness, pedal edema, joint swelling, calf tenderness Back exam: Present: normal inspection Neurological exam: Present: alert, oriented X3, CN II-XII intact Psychiatric exam: Present: normal affect, normal mood Skin exam: Present: warm, dry, intact, normal color. 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 Patient be admitted for cardiac observation regarding chest pain on anticoagulation. History of [place] Disposition Clinical Impression: Chest pain Disposition: ADMITTED IP TO THIS HOSP Condition: Fair Is patient prescribed a controlled substance at d/c from ED?: No
[2018-07-13] MEDS ORDERED: HEPARIN SODIUM,PORCINE 5,000 UNIT/ML 1 ML VIAL IV ONE (18:52)
[2018-07-13] MEDS ORDERED: HEPARIN SODIUM,PORCINE 5,000 UNIT/ML 1 ML VIAL IV PRN (18:52)
[2018-07-13] MEDS ORDERED: NITROGLYCERIN SL TABS 0.4 MG TAB SUBLINGUAL PRN (18:52)
[2018-07-13] MEDS ORDERED: HEPARIN SOD,PORK IN 0.45% NACL 25,000 UNIT in 0.45% NACL 1 250ML.BAG IV SCH (19:00)
[2018-07-13] MEDS ORDERED: MORPHINE SULFATE 4 MG/ML SYRINGE IVP STA (19:18)
--- NOTE | 2018-07-13 21:03 | P.HPIM ---
History of Present Illness H&P Date: 07/13/18 Chief Complaint: chest pain 43 year old female with history of CAD s/p stent 2016, and anxiety patient transferred from another facility due to atypical chest pain with history of CAD and stent. Patient reports the pain started all of a sudden woke her up from sleep yesterday, described it as heavy central chest pain radiating to both shoulders and upper back 8 out of 10 in severity constant pain improved slightly with nitro for few minutes. Pain gets worse with movement associated with some nausea and dizziness but denies any heart racing shortness of breath vomiting fevers or chills. Patient reports some nonproductive cough that's been going on for over a week now. At the other facility all her workup was negative. Chest x-ray was negative for any acute process. Troponins were negative. EKG showing normal sinus rhythm. Currently patient still reports 8 out of 10 central pressure-like chest pain despite taking nitro currently on heparin drip. However during the patient interview she does not seem to be at the level of pain that she is claiming. Patient will be monitored overnight cardiac enzymes will be trended and cardiology to evaluate the patient in the morning if she continues to have chest pain probably she'll have left patient only takes aspirin at home and lantus, no other cardiac meds Review of Systems Pertinent positives as noted in HPI. All other systems were reviewed and are negative Past Medical History Past Medical History: Coronary Artery Disease (CAD), Chest Pain / Angina, Diabetes Mellitus, Fibromyalgia, GERD/Reflux, Hyperlipidemia, Hypertension Additional Past Medical History / Comment(s): IBS History of Any Multi-Drug Resistant Organisms: MRSA Date of last positivie culture/infection: 2006 MDRO Source:: buttock and knee cap Past Surgical History: Appendectomy, Cholecystectomy, Heart Catheterization, Heart Catheterization With Stent, Hysterectomy, Orthopedic Surgery Additional Past Surgical History / Comment(s): right knee, hip, elbow and shoulder surgeries Past Anesthesia/Blood Transfusion Reactions: Previous Problems w/ Anesthesia Additional Past Anesthesia/Blood Transfusion Reaction / Comment(s): PAST HX OF HAVING A "HARD TIME WAKING UP" Date of Last Stent Placement:: 11/2016 Past Psychological History: Anxiety, Depression Smoking Status: Former smoker Past Alcohol Use History: Occasional Past Drug Use History: None Reported - Past Family History Mother Family Medical History: Cancer, Diabetes Mellitus Additional Family Medical History / Comment(s): multiple personalities, placental cancer, heart issues Father Family Medical History: Coronary Artery Disease (CAD), Myocardial Infarction ([place]) Daughter(s) Additional Family Medical History / Comment(s): severe depression Son(s) Additional Family Medical History / Comment(s): heart issues Medications and Allergies Home Medications Medication Instructions Recorded Confirmed Type Nitroglycerin Sl Tabs [Nitrostat] 0.4 mg SUBLINGUAL Q5M PRN #25 tab 12/03/16 07/13/18 Rx Aspirin EC [Ecotrin Low Dose] 81 mg PO DAILY 07/13/18 07/13/18 History Insulin Glargine [Lantus] 5 unit SQ BID 07/13/18 07/13/18 History Allergies Allergy/AdvReac Type Severity Reaction Status Date / Time promethazine [From Phenergan] Allergy "MUSCLE Verified 07/13/18 18:07 CONVULSIONS" pregabalin [From Lyrica] AdvReac SUICIDAL Verified 07/13/18 18:07 THOUGHTS VINEGAR AdvReac "SEVERE Uncoded 05/02/17 11:08 HEADACHE, NAUSEA" Physical Exam Vitals: Vital Signs Temp Pulse Pulse Resp BP BP Pulse Ox 07/13/18 20:00 98.5 F 89 15 153/80 98 07/13/18 19:34 82 18 137/81 99 07/13/18 19:00 86 16 145/95 100 07/13/18 18:30 85 20 135/98 99 07/13/18 18:14 77 18 07/13/18 18:00 87 15 144/93 99 07/13/18 17:37 74 15 99 07/13/18 17:32 98.6 F 75 18 144/93 100 Intake and Output 07/13/18 07/13/18 07/13/18 06:59 14:59 22:59 Other: Weight 86.636 kg Constitutional: No acute distress, conversant, pleasant, obese Eyes: Anicteric sclerae, moist conjunctiva, no lid-lag Pupils equal round reactive to light ENMT: NC/AT Oropharynx clear, no erythema, exudates Neck: Supple, FROM, no masses, or JVD No carotid bruits No thyromegaly Lungs: Clear to auscultation Clear to percussion Normal respiratory effort, no accessory muscle use Cardiovascular: Heart regular in rate and rhythm, , pain is not reproducible No murmurs, gallops, or rubs No peripheral edema Abdominal: Soft Nontender, no guarding, rebound or rigidity Abdomen moving with respiration Normoactive bowel sounds No hepatomegaly, No splenomegaly No palpable mass No abdominal wall hernia noted Skin: Normal temperature, tone, texture, turgor No induration No subcutaneous nodules No rash, lesions No ulcers Extremities: No digital cyanosis No clubbing Pedal pulses intact and symmetrical Radial pulses intact and symmetrical No calf tenderness Psychiatric: Alert and oriented to person, place and time Appropriate affect fair judgement Neuro Muscles Strength 5/5 in all 4 extremities Sensation to light touch grossly present throughout Cranial nerves II-XII grossly intact No focal sensory deficits Lymphatics: no palpable cervical or supraclavicular , or inguinal lymph nodes Assessment and Plan Assessment: 43-year-old female with history of CAD status post stent and anxiety admitted under observation with anticipated length of stay less than 48 hours for chest pain to rule out acute coronary syndrome. Patient was transferred from different facility due to atypical chest pain with history of CAD and recent stent in 2016 Plan: Atypical chest pain rule out acute coronary syndrome History of CAD status post stent Anxiety Diabetes mellitus on insulin plan Patient's age and started on heparin drip in the ED Trending cardiac enzymes Cardiac monitoring Cardiology evaluation in the morning Continue with aspirin, statin, metoprolol, heparin drip Opiates Pain control Xanax when necessary for anxiety insulin sliding scale continue with lantus BID, home dose DVT prophylaxis patient on heparin drip for chest pain Surrogate decision-maker: patient Tatiana alvarenga [phone] CODE STATUS:full code Discussed with: Patient, ER, RN Anticipated discharge: [address]: home A total of 60 minutes was spent on the care of this complex patient more than 50% of the time was spent in counseling and care coordination.
[2018-07-13] MEDS: INSULIN ASPART (NovoLOG) 100 UNIT/ML VIAL SQ SCH (22:02)
[2018-07-13] MEDS: METOPROLOL TARTRATE 25 MG TAB PO SCH (22:07)
[2018-07-13] MEDS: INSULIN DETEMIR (LEVEMIR) 100 UNIT/ML SYR SQ SCH (22:08)
[2018-07-14] MEDS: MORPHINE SULFATE 4 MG/ML SYRINGE IVP PRN ×2 (02:58→09:10)
[2018-07-14 06:50] LABS: Glucose,Whole Blood 226 mg/dL (75-99)
[2018-07-14 07:56] LABS: RBC 4.28 m/uL (3.80-5.40); WBC 9.5 k/uL (3.8-10.6)
[2018-07-14 07:57] LABS: Basophils # (A) 0.1 k/uL (0-0.2); Basophils % (A) 1 %; Eosinophils # (A) 0.3 k/uL (0-0.7); Eosinophils % (A) 4 %; HCT 38.7 % (34.0-46.0); Lymphocytes # (A) 4.3 k/uL (1.0-4.8); Lymphocytes % (A) 46 %; MCH 30.3 pg (25.0-35.0); MCHC 33.5 g/dL (31.0-37.0); MCV 90.6 fL (80.0-100.0); Mean Platelet Volume 6.9; Monocytes # (A) 0.5 k/uL (0-1.0); Monocytes % (A) 5 %; Neutrophils # (A) 3.9 k/uL (1.3-7.7); Neutrophils % (A) 41 %; Platelet Count 453 k/uL (150-450); RDW 13.5 % (11.5-15.5)
[2018-07-14 07:59] LABS: ALT 44 U/L (9-52); AST 25 U/L (14-36); Albumin 3.9 g/dL (3.5-5.0); Alkaline Phosphatase 81 U/L (38-126); Anion Gap 9 mmol/L; Blood Urea Nitrogen 11 mg/dL (7-17); Calcium 8.6 mg/dL (8.4-10.2); Carbon Dioxide 22 mmol/L (22-30); Chloride 107 mmol/L (98-107); Cholesterol 195 mg/dL (<200); Glucose 232 mg/dL (74-99); HDL Cholesterol 28 mg/dL (40-60); Sodium 138 mmol/L (137-145); Total Bilirubin 0.5 mg/dL (0.2-1.3)
[2018-07-14 08:12] LABS: Triglycerides 592 mg/dL (<150)
[2018-07-14 08:19] VITALS: RESP 18
[2018-07-14] MEDS ORDERED: ASPIRIN 325 MG TAB PO SCH (09:00)
[2018-07-14] MEDS ORDERED: ATORVASTATIN 80 MG TAB PO SCH (09:00)
[2018-07-14] MEDS ORDERED: ALPRAZolam 0.5 MG TAB PO PRN (09:47)
[2018-07-14] MEDS ORDERED: ALPRAZolam 0.25 MG TAB PO PRN (09:47)
[2018-07-14] MEDS ORDERED: SODIUM CHLORIDE 0.9% 1,000 ML in EMPTY BAG 1 BAG IV ONE (09:47)
[2018-07-14] MEDS: METOPROLOL TARTRATE 25 MG TAB PO SCH (09:54)
[2018-07-14] MEDS: INSULIN ASPART (NovoLOG) 100 UNIT/ML VIAL SQ SCH ×3 (09:54→16:53)
[2018-07-14] MEDS ORDERED: LIDOCAINE 1% INJ 10MG/ML (20 ML MDV) ONE (10:26)
[2018-07-14] MEDS ORDERED: VERAPAMIL 2.5 MG/ML 2 ML AMP ONE (10:27)
[2018-07-14] MEDS ORDERED: MIDAZOLAM (PF) 2 MG/2 ML VIAL IV ONE (10:35)
[2018-07-14] MEDS ORDERED: LIDOCAINE 1% INJ 10MG/ML (20 ML MDV) SQ ONE (10:37)
[2018-07-14] MEDS ORDERED: NITROGLYCERIN 1000MCG/10ML SYRINGE INTRAARTER ONE (10:41)
[2018-07-14] MEDS ORDERED: IV FLUID CONTINUATION 150 ML IV ONE (10:46)
[2018-07-14] MEDS ORDERED: IOPAMIDOL-370 125ML BTL INJ ONE (10:46)
[2018-07-14] MEDS ORDERED: fentaNYL (PF) 50 MCG/ML 2 ML AMP ONE (10:49)
[2018-07-14] MEDS ORDERED: fentaNYL (PF) 50 MCG/ML 2 ML AMP IVP ONE (10:50)
[2018-07-14] MEDS ORDERED: RX INFO: IV CONTRAST WAS GIVEN 1 EACH MISC MISCELLANE PRN (10:54)
[2018-07-14] MEDS ORDERED: SODIUM CHLORIDE 0.9% 1,000 ML IV SCH (11:00)
--- NOTE | 2018-07-14 11:13 | P.CRDCN ---
History of Present Illness History of present illness: This is a pleasant 43-year-old female past medical history significant for coronary artery disease status post stent placement, dyslipidemia, diabetes mellitus, former nicotine dependence and noncompliance. She underwent initial cardiac catheterization in 2016 revealing significant stenosis of the mid LAD and underwent successful angioplasty at that time. Should symptoms of unstable angina in April 2017 and underwent repeat cardiac catheterization revealing a patent stent with no other obstructive disease. She presented to the hospital with symptoms of chest discomfort and was subsequently transferred here for further evaluation by cardiology. She is seen and examined resting comfortably in bed in no acute distress. She states her chest discomfort started Saturday night prior to going to bed for the evening.. The pain felt like a very heavy squeezing sensation like an elephant was sitting on her chest. She took one nitroglycerin and her symptoms did resolve. She went to bed Saturday night chest pain-free. She woke up Saturday feeling similar chest discomfort again although this time it was radiating through to her back between her shoulder blades and down the left arm. Her chest discomfort has been constant since Saturday with no specific aggravating or alleviating factors. She did receive IV morphine through the night that she states took some of the edge off however she continues to have chest discomfort at the time of my exam. She denies associated shortness of breath, dizziness, nausea, vomiting or diaphoresis. She currently only takes aspirin 81 mg daily. She states she stopped taking her atorvastatin approximately 2 months ago. EKG reveals sinus mechanism with no acute ST or T wave abnormalities noted. Chest x-ray obtained at previous hospital is negative for an acute cardiopulmonary process. Laboratory data reviewed including labs drawn at previous hospital, WBC 9.5, hemoglobin 13, platelets 453, sodium 138, potassium 4.0, creatinine 0.53, cardiac enzymes negative 3, triglycerides 592. At the time of my exam: CONSTITUTIONAL: Denies fever. Denies chills. EYES: Denies blurred vision. Denies vision changes. Denies eye pain. EARS, NOSE, MOUTH & THROAT: Denies headache. Denies sore throat. Denies ear pain. CARDIOVASCULAR: Complains of chest pain. Denies shortness of breath. Denies orthopnea. Denies PND. Denies palpitations. RESPIRATORY: Denies cough. GASTROINTESTINAL: Denies abdominal pain. Denies diarrhea. Denies constipation. Denies nausea. Denies vomiting. MUSCULOSKELETAL: Denies myalgias. INTEGUMENTARY: Denies pruitis. Denies rash. NEUROLOGIC: Denies numbness. Denies tingling. Denies weakness. PSYCHIATRIC: Denies anxiety. Denies depression. ENDOCRINE: Denies fatigue. Denies weight change. Denies polydipsia. Denies polyurina. GENITOURINARY: Denies burning, hematuria or urgency with micturation. HEMATOLOGIC: Denies history of anemia. Denies bleeding. Blood pressure 123/78 heart rate 87 afebrile maintaining oxygen saturation on room air GENERAL: This is a 43-year-old female in no apparent distress at the time of my examination. HEENT: Head is atraumatic, normocephalic. Pupils are equal, round. Sclerae anicteric. Conjunctivae are clear. Mucous membranes of the mouth are moist. Neck is supple. There is no jugular venous distention. No carotid bruit is heard. LUNGS: Clear to auscultation no wheezes, rales or rhonchi. No chest wall tenderness is noted on palpation or with deep breathing. HEART: Regular rate and rhythm without murmurs, rubs or gallops. S1 and S2 heard. ABDOMEN: Soft, nontender. Bowel sounds are heard. No organomegaly noted. EXTREMITIES: No evidence of peripheral edema and no calf tenderness noted. VASCULAR: Radial and dorsalis pedis pulses palpated, no evidence of clubbing. NEUROLOGIC: Patient is awake, alert and oriented x3. ASSESSMENT Chest pain suggestive of unstable angina History of coronary artery disease status post stent placement to the mid LAD 2016 Dyslipidemia Diabetes mellitus Obesity, BMI 33 History of noncompliance PLAN Obtain 2-D echocardiogram and Doppler study to assess cardiac structure and function. Recommend proceeding with cardiac catheterization to further assess for progression of coronary artery disease or in-stent restenosis. I have discussed the risks, benefits and alternative therapies for the above- mentioned procedure and for both sedation/analgesia as well as necessary blood product administration, if indicated, as they pertain to this patient. The patient has indicated understanding and acceptance of the risks and procedures discussed. Further recommendations to follow based upon clinical course. The importance of medication compliance has been discussed and strongly recommended. Thank you kindly for this consultation. Nurse Practitioner note has been reviewed, I agree with a documented findings and plan of care. Patient was seen and examined. Past Medical History Past Medical History: Coronary Artery Disease (CAD), Chest Pain / Angina, Diabetes Mellitus, Fibromyalgia, GERD/Reflux, Hyperlipidemia, Hypertension Additional Past Medical History / Comment(s): IBS History of Any Multi-Drug Resistant Organisms: MRSA Date of last positivie culture/infection: 2006 MDRO Source:: buttock and knee cap Past Surgical History: Appendectomy, Cholecystectomy, Heart Catheterization, Heart Catheterization With Stent, Hysterectomy, Orthopedic Surgery Additional Past Surgical History / Comment(s): right knee, hip, elbow and shoulder surgeries Past Anesthesia/Blood Transfusion Reactions: Previous Problems w/ Anesthesia Additional Past Anesthesia/Blood Transfusion Reaction / Comment(s): PAST HX OF HAVING A "HARD TIME WAKING UP" Date of Last Stent Placement:: 11/2016 Past Psychological History: Anxiety, Depression Smoking Status: Former smoker Past Alcohol Use History: Occasional Past Drug Use History: None Reported - Past Family History Mother Family Medical History: Cancer, Diabetes Mellitus Additional Family Medical History / Comment(s): multiple personalities, placental cancer, heart issues Father Family Medical History: Coronary Artery Disease (CAD), Myocardial Infarction ([place]) Daughter(s) Additional Family Medical History / Comment(s): severe depression Son(s) Additional Family Medical History / Comment(s): heart issues Medications and Allergies Home Medications Medication Instructions Recorded Confirmed Type Nitroglycerin Sl Tabs [Nitrostat] 0.4 mg SUBLINGUAL Q5M PRN #25 tab 12/03/16 07/13/18 Rx Aspirin EC [Ecotrin Low Dose] 81 mg PO DAILY 07/13/18 07/13/18 History Insulin Glargine [Lantus] 5 unit SQ BID 07/13/18 07/13/18 History Allergies Allergy/AdvReac Type Severity Reaction Status Date / Time promethazine [From Phenergan] Allergy "MUSCLE Verified 07/13/18 18:07 CONVULSIONS" pregabalin [From Lyrica] AdvReac SUICIDAL Verified 07/13/18 18:07 THOUGHTS VINEGAR AdvReac "SEVERE Uncoded 05/02/17 11:08 HEADACHE, NAUSEA" Physical Exam Vitals: Vital Signs Temp Pulse Pulse Pulse Resp BP BP 07/14/18 07:20 98.2 F 87 18 123/78 07/14/18 03:25 72 16 07/14/18 03:23 98.0 F 72 15 132/73 07/14/18 00:00 71 16 07/13/18 23:28 97.9 F 76 16 128/68 07/13/18 20:00 98.5 F 89 17 153/80 07/13/18 19:34 82 18 137/81 07/13/18 19:00 86 16 145/95 07/13/18 18:30 85 20 135/98 07/13/18 18:14 77 18 07/13/18 18:00 87 15 144/93 07/13/18 17:37 74 15 07/13/18 17:32 98.6 F 75 18 144/93 Pulse Ox 07/14/18 07:20 97 07/14/18 03:25 07/14/18 03:23 98 07/14/18 00:00 07/13/18 23:28 97 07/13/18 20:00 98 07/13/18 19:34 99 07/13/18 19:00 100 07/13/18 18:30 99 07/13/18 18:14 07/13/18 18:00 99 07/13/18 17:37 99 07/13/18 17:32 100 Intake and Output 07/13/18 07/14/18 07/14/18 22:59 06:59 14:59 Intake Total 76.076 Balance 76.076 Intake: Intake, IV Titration 76.076 Amount Heparin Sod,Pork in 0.45% 76.076 NaCl 25,000 unit In 0.45 % NaCl 1 250ml.bag @ 11. 58 UNITS/KG/HR 10.032 mls /hr IV .Q24H [facility] Rx#: [id number] Oral 0 Other: Voiding Method Toilet Toilet # Voids 1 1 Weight 86.636 kg Results 07/14/18 07:25 07/14/18 07:25 Cardiac Enzymes 07/13/18 07/14/18 07/14/18 Range/Units 19:42 01:19 07:25 AST 25 (14-36) U/L Troponin I <0.012 <0.012 (0.000-0.034) ng/mL Coagulation 07/14/18 07/14/18 Range/Units 01:19 07:25 APTT 30.2 H 33.5 H (22.0-30.0) sec Lipids 07/14/18 Range/Units 07:25 Triglycerides 592 H (<150) mg/dL Cholesterol 195 (<200) mg/dL HDL Cholesterol 28 L (40-60) mg/dL CBC 07/14/18 Range/Units 07:25 WBC 9.5 (3.8-10.6) k/uL RBC 4.28 (3.80-5.40) m/uL Hgb 13.0 (11.4-16.0) gm/dL Hct 38.7 (34.0-46.0) % Plt Count 453 H (150-450) k/uL Comprehensive Metabolic Panel 07/14/18 Range/Units 07:25 Sodium 138 (137-145) mmol/L Potassium 4.0 (3.5-5.1) mmol/L Chloride 107 (98-107) mmol/L Carbon Dioxide 22 (22-30) mmol/L BUN 11 (7-17) mg/dL Creatinine 0.53 (0.52-1.04) mg/dL Glucose 232 H (74-99) mg/dL Calcium 8.6 (8.4-10.2) mg/dL AST 25 (14-36) U/L ALT 44 (9-52) U/L Alkaline Phosphatase 81 (38-126) U/L Total Protein 7.0 (6.3-8.2) g/dL Albumin 3.9 (3.5-5.0) g/dL Current Medications Generic Name Dose Route Start Last Admin Trade Name Freq PRN Reason Stop Dose Admin Aspirin 325 mg 07/14/18 09:00 Aspirin PO DAILY [facility] Atorvastatin Calcium 80 mg 07/14/18 09:00 Lipitor PO DAILY [facility] Heparin Sodium (Porcine) 0 unit 07/13/18 18:52 Heparin IV Q6HR PRN Low PTT Protocol Heparin Sodium/Sodium Chloride 250 mls @ 10.032 mls/hr 07/13/18 19:00 07/14/18 02:51 25,000 unit/ Sodium Chloride IV 14.58 units/kg/hr .Q24H [facility] 12.632 mls/hr Titration Protocol 11.58 UNITS/KG/HR Insulin Aspart 0 unit 07/13/18 21:00 07/13/18 22:02 Novolog SQ Not Given ACHS [facility] Protocol Insulin Detemir 5 unit 07/13/18 21:00 07/13/18 22:08 Levemir SQ 5 unit BID JASON Administration Metoprolol Tartrate 25 mg 07/13/18 21:00 07/13/18 22:07 Lopressor PO 25 mg BID JASON Administration Morphine Sulfate 4 mg 07/13/18 19:44 07/14/18 02:58 Morphine Sulfate (Inj) IVP 4 mg Q4HR PRN Administration Pain Nitroglycerin 0.4 mg 07/13/18 18:52 Nitrostat SUBLINGUAL Q5M PRN Chest Pain Intake and Output 07/13/18 07/14/18 07/14/18 22:59 06:59 14:59 Intake Total 76.076 Balance 76.076 Intake: Intake, IV Titration 76.076 Amount Heparin Sod,Pork in 0.45% 76.076 NaCl 25,000 unit In 0.45 % NaCl 1 250ml.bag @ 11. 58 UNITS/KG/HR 10.032 mls /hr IV .Q24H [facility] Rx#: [id number] Oral 0 Other: Voiding Method Toilet Toilet # Voids 1 1 Weight 86.636 kg 07/14/18 07:25 07/14/18 07:25
[2018-07-14 11:30] VITALS: TEMP 98
--- NOTE | 2018-07-14 11:49 | CC ---
CARDIAC CATHETERIZATION REPORT DATE OF SERVICE: 07/14/2018 PERFORMING PHYSICIAN: Dennis Louis, Customer Experience Intern. PROCEDURE PERFORMED: 1. Selective right and left coronary angiogram. 2. Left heart catheterization. INDICATION: This is a pleasant 43-year-old female patient who is known to have history of coronary artery disease and prior stenting of the LAD, who presented to the hospital complaining of chest discomfort concerning for angina. Because of that, heart catheterization was advised. APPROACH: Right common femoral artery. COMPLICATION: None. LEVEL OF SEDATION: Moderate with sedation length of 15 minutes. PROCEDURE DESCRIPTION: After obtaining an informed consent, the patient was brought to the cardiac grinding and polishing laborer. The right common femoral artery was cannulated using micropuncture technique. The micropuncture wire passed easily, then I placed a 6-Jordanian sheath in the right common femoral artery. After that, I did selective right and left coronary angiogram using JR4 and JL4 catheters. Left heart catheterization was performed using 6-Jordanian pigtail catheter. The procedure was completed without any complication. SELECTIVE CORONARY ANGIOGRAM: 1. The right coronary artery appeared to be a large caliber vessel and is a dominant vessel and appeared to be angiographically normal. It distally bifurcates into PDA and PLV branches, both are angiographically normal. 2. The left main is a short left main but angiographically normal it bifurcates into the left circumflex and left anterior descending artery. 3. The left circumflex is a large caliber vessel. It is a nondominant vessel. The left circumflex itself is angiographically normal and gives rise into two OM branches, appeared to be angiographically normal. 4. The LAD, the proximal LAD appeared to have mild disease only. The mid LAD is stented with mild in-stent restenosis. The LAD distally appeared to be angiographically normal. HEMODYNAMICS: The ventricular diastolic was about 8 mmHg without significant gradient across the aortic valve. CONCLUSION: 1. Mild in-stent restenoses involving the left anterior descending artery stent. 2. Coronary vasospasm was identified in the right coronary artery, response to IC nitroglycerin. POSTPROCEDURE MANAGEMENT: 1. Consider oral nitrate. 2. Patient can be discharged home. MMODL / IJN: [id number] /
--- NOTE | 2018-07-14 11:50 | LTR ---
DATE OF SERVICE: 07/14/2018 RE: CampbellCharito Dear Dr. Phipps: Ms. Charito Campbell presented to [facility] with chest discomfort and continues to have ongoing chest pain. Because of that, a heart catheterization was advised. Heart catheterization revealed patent stent in the LAD. Maximized medical treatment was advised. Thank you for allowing us to participate in her care and please do not hesitate to call if you have any question or concern. Sincerely, Dennis Louis MD MMSARA / QUINTENN: [id number] /
[2018-07-14 11:54] LABS: Glucose,Whole Blood 212 mg/dL (75-99)
--- NOTE | 2018-07-14 12:07 | P.DS ---
Providers Date of admission: 07/13/18 18:55 Expected date of discharge: 07/14/18 Attending physician: Glenn Fernandez MD Consults: 07/13/18 18:52 Consult Physician Urgent Consulting Provider: Artemio Larsen Consult Reason/Comments: chf Do you want consulting provider notified?: Yes Primary care physician: Kristel Phipps MD Hospital Course: 43 year old female with history of CAD s/p stent 2017, and anxiety Patient transferred from another facility due to atypical chest pain with history of CAD and stent. Patient reports the pain started all of a sudden woke her up from sleep yesterday, described it as heavy central chest pain radiating to both shoulders and upper back 8 out of 10 in severity constant pain improved slightly with nitro for few minutes. Pain gets worse with movement associated with some nausea and dizziness but denies any heart racing shortness of breath vomiting fevers or chills. Patient reports some nonproductive cough that's been going on for over a week now. At the other facility all her workup was negative. Chest x-ray was negative for any acute process. Troponins were negative. EKG showing normal sinus rhythm. Troponin was less than 0.0122 with EKG showing normal sinus rhythm. Cardiology was consulted and recommended cardiac catheterization. Cardiac catheterization was performed on 07/14/2018. Patient was resumed on aspirin and Lipitor. Her home medication of metoprolol was restarted. Otherwise, her home medications were resumed for diabetes and anxiety. Patient was seen and examined after cardiac catheterization. No acute events overnight. Patient reports improvement in her chest pain, currently 4 out of 10 in severity. Patient reports aggravation of her pain with deep inspiration. She denies any shortness of breath or palpitations. No nausea or vomiting. No fever or chills. General: [non toxic], [no distress], [appears at stated age] Derm: [warm], [dry] Head: [atraumatic], [normocephalic], [symmetric] Eyes: [EOMI], [no lid lag], [anicteric sclera] Mouth: [no lip lesion], [mucus membranes moist] Cardiovascular: [S1S2 reg], [no murmur], [positive posterior tibial pulse bilateral], Lungs: [CTA bilateral], [no rhonchi, no rales] , [no accessory muscle use] Abdominal: [soft], [ nontender to palpation], [no guarding], [no appreciable organomegaly] Ext: [no gross muscle atrophy], [no edema], [no contractures] Neuro: [no focal neuro deficits] Psych: [Alert], [oriented], [appropriate affect] Assessment and Plan Atypical chest pain with concerns of acute coronary syndrome History of CAD status post sent Anxiety Diabetes mellitus Troponin less than 0.0122 with EKG showing normal sinus rhythm. Cardiac catheterization performed, read pending. Echocardiogram done and pending read. Continue aspirin and Lipitor. Continue beta korey. Pain management with morphine and Nitrostat. Telemetry monitoring. Follow cardiology consultation. Continue aspirin and Lipitor. Continue beta korey. Xanax as needed. Uffah-up-rewg glucose 212. Continue Levemir 5 units twice a day. Insulin sliding-scale. Regular Accu-Cheks. Hypoglycemic precautions. Patient's chest pain improved, likely noncardiac. Patient to be discharged today pending cardiac catheterization results. Pertinent Studies: Cardiac cath, echocardiogram, chest x-ray Patient Condition at Discharge: Fair Plan - Discharge Summary Discharge Rx Participant: Yes New Discharge Prescriptions: New Aspirin 81 mg PO DAILY chew Isosorbide Mononitrate ER [Imdur] 30 mg PO DAILY #30 tab.er.24h Atorvastatin [Lipitor] 80 mg PO DAILY #30 tab Metoprolol Tartrate [Lopressor] 25 mg PO BID #60 tab Nitroglycerin Sl Tabs [Nitrostat] 0.4 mg SUBLINGUAL Q5M PRN tab PRN Reason: Chest Pain Continue Nitroglycerin Sl Tabs [Nitrostat] 0.4 mg SUBLINGUAL Q5M PRN #25 tab PRN Reason: Chest Pain Insulin Glargine [Lantus] 5 unit SQ BID Aspirin EC [Ecotrin Low Dose] 81 mg PO DAILY Discharge Medication List Nitroglycerin Sl Tabs [Nitrostat] 0.4 mg SUBLINGUAL Q5M PRN #25 tab 12/03/16 [Rx] Aspirin EC [Ecotrin Low Dose] 81 mg PO DAILY 07/13/18 [History] Insulin Glargine [Lantus] 5 unit SQ BID 07/13/18 [History] Aspirin 81 mg PO DAILY chew 07/14/18 [Rx] Atorvastatin [Lipitor] 80 mg PO DAILY #30 tab 07/14/18 [Rx] Isosorbide Mononitrate ER [Imdur] 30 mg PO DAILY #30 tab.er.24h 07/14/18 [Rx] Metoprolol Tartrate [Lopressor] 25 mg PO BID #60 tab 07/14/18 [Rx] Nitroglycerin Sl Tabs [Nitrostat] 0.4 mg SUBLINGUAL Q5M PRN tab 07/14/18 [Rx] Follow up Appointment(s)/Referral(s): Kristel Phipps MD [Primary Care Provider] - 1-2 days Dennis Louis MD [STAFF PHYSICIAN] - 1 Week Activity/Diet/Wound Care/Special Instructions: Diet: Diabetic Follow-up PCP within 1-2 days of discharge. Follow-up cardiology within 1 week of discharge. Take all medications as advised.
[2018-07-14] MEDS: INSULIN DETEMIR (LEVEMIR) 100 UNIT/ML SYR SQ SCH (12:13)
[2018-07-14 14:02] VITALS: BP 120/68; PULSE 78
[2018-07-14] MEDS ORDERED: ONDANSETRON 4 MG/2 ML VIAL IVP STA (14:51)
[2018-07-14 16:47] LABS: Glucose,Whole Blood 238 mg/dL (75-99)
--- NOTE | 2018-07-14 18:50 | ECHOF ---
Referral Reason: MEASUREMENTS -------- HEIGHT: 160.0 cm WEIGHT: 86.6 kg BP: IVSd: 0.8 cm (0.6 - 1.1) LVIDd: 4.4 cm (3.9 - 5.3) LVPWd: 0.9 cm (0.6 - 1.1) IVSs: 1.9 cm LVIDs: 1.6 cm LVPWs: 1.6 cm RVIDd: 2.3 cm (< 3.3) LAESV Index (A-L): 13.12 ml/m Ao Diam: 2.6 cm (2.0 - 3.7) LA Diam: 3.1 cm (2.7 - 3.8) AV Cusp: 2.0 cm (1.5 - 2.6) EPSS: 0.6 cm MV E Felipe: 0.89 m/s MV DecT: 198 ms MV A Felipe: 0.85 m/s MV E/A Ratio: 1.05 RAP: 5.00 mmHg RVSP: 21.01 mmHg MV EF SLOPE: 100.30 mm/s (70 - 150) MV EXCURSION: 13.19 mm (> 18.000) FINDINGS -------- Sinus rhythm. This was a technically good study. The left ventricular size is normal. Left ventricular wall thickness is normal. Overall left vent ricular systolic function is normal with, an EF between 55 - 60 %. The right ventricle is normal in size. Normal LA size by volume 22+/-6 ml/m2. The right atrial size is normal. Interatrial and interventricular septum intact. The aortic valve is trileaflet and appears structurally normal. The mitral valve is normal. There is trace mitral regurgitation. The tricuspid valve appears structurally normal. Trace tricuspid regurgitation present. The right ventricular systolic pressure, as measured by Doppler, is 21.01mmHg. There is no pulmonic regurgitation present. The aortic root size is normal. There is no pericardial effusion. CONCLUSIONS -------- 1. Sinus rhythm. 2. This was a technically good study. 3. The left ventricular size is normal. 4. Left ventricular wall thickness is normal. 5. Overall left ventricular systolic function is normal with, an EF between 55 - 60 %. 6. The right ventricle is normal in size. 7. Normal LA size by volume 22+/-6 ml/m2. 8. The right atrial size is normal. 9. Interatrial and interventricular septum intact. 10. The aortic valve is trileaflet and appears structurally normal. 11. The mitral valve is normal. 12. There is trace mitral regurgitation. 13. The tricuspid valve appears structurally normal. 14. Trace tricuspid regurgitation present. 15. The right ventricular systolic pressure, as measured by Doppler, is 21.01mmHg. 16. There is no pulmonic regurgitation present. 17. The aortic root size is normal. 18. There is no pericardial effusion. SPECIALTY PERSON: Kenzie Call RDCS
[2018-07-15] MEDS ORDERED: ASPIRIN 81 MG PO SCH (09:00)
[2018-07-15] MEDS ORDERED: ISOSORBIDE MONONITRATE ER 30 MG TAB.ER.24H PO SCH (09:00)
== END 2018-07-14 17:25 | disposition home or self-care (01) ==
LOC: EC 17:30 → 1SOBS 18:55
PROVIDERS: ADMIT Internal Medicine; ATTEND Internal Medicine
DX: R07.89 Other chest pain (principal); R05 Cough; R00.2 Palpitations; R11.0 Nausea; R42 Dizziness and giddiness; R07.2 Precordial pain; Z95.5 Presence of coronary angioplasty implant and graft; I25.111 Atherosclerotic heart disease of native coronary artery with angina pectoris with documented spasm; T82.855A Stenosis of coronary artery stent, initial encounter; Y83.1 Surgical operation with implant of artificial internal device as the cause of abnormal reaction of the patient, or of later complication, without mention of misadventure at the time of the procedure; E11.9 Type 2 diabetes mellitus without complications; I25.2 Old myocardial infarction; E78.5 Hyperlipidemia, unspecified; F41.9 Anxiety disorder, unspecified; E66.9 Obesity, unspecified; Z68.33 Body mass index [BMI] 33.0-33.9, adult; T46.6X6A Underdosing of antihyperlipidemic and antiarteriosclerotic drugs, initial encounter; Z86.14 Personal history of Methicillin resistant Staphylococcus aureus infection; Z87.891 Personal history of nicotine dependence; Z90.49 Acquired absence of other specified parts of digestive tract; Z91.19 Patient's noncompliance with other medical treatment and regimen; Z79.82 Long term (current) use of aspirin; Z79.4 Long term (current) use of insulin; Z79.899 Other long term (current) drug therapy; Z88.8 Allergy status to other drugs, medicaments and biological substances; Z91.018 Allergy to other foods; Z80.8 Family history of malignant neoplasm of other organs or systems
CPT/HCPCS: 96366 ×2; 96376 ×2; 96365; 96375; 99285; 94760; 93005; 93306; 93458; 80061; 80053; 84484 ×2; 85025; 85730; G0378 ×2; C1769 ×3; C1894; C1760; J2270 ×2; J1644 ×2; J2405; J2001; J3010; Q9967; J2250

== ENCOUNTER 2018-10-20 20:03 | Emergency (ER) | payer OTHER ==
[2018-10-20 20:32] VITALS: BP 160/76; PULSE 73; RESP 18; TEMP 98
[2018-10-20] MEDS ORDERED: KETOROLAC 30 MG/ML 1 ML VIAL IM STA (20:58)
--- NOTE | 2018-10-20 21:11 | ED ---
General Adult HPI - General Chief complaint: Extremity Injury, Upper Stated complaint: Wrist/elbow injury Time Seen by Provider: 10/20/18 20:39 Source: patient Mode of arrival: ambulatory Limitations: no limitations - History of Present Illness Initial comments: Patient is a 43-year-old female presenting to emergency Department with a chief complaint of right hand pain. Patient reports she was told by her dog that was in a leash approximately 2 hours ago. Patient reports she heard a "pop" in her right wrist and elbow. Patient reports previous surgery in the right elbow. Patient reports pain on palpation in the right elbow but denies any limited range of motion. Patient also reports moderate pain in the right wrist that is exacerbated with any movement. Patient reports limited range of motion due to pain. Patient reports numbness but no tingling in the fingers. Patient has limited range of motion in the fingers. Patient does not have any anatomical snuffbox tenderness. There is mild erythema and edema at the wrist. Patient reports most of the pain is located on the medial aspect of the wrist. - Related Data Home Medications Medication Instructions Recorded Confirmed Aspirin EC [Ecotrin Low Dose] 81 mg PO DAILY 07/13/18 07/13/18 Insulin Glargine [Lantus] 5 unit SQ BID 07/13/18 07/13/18 Previous Rx's Medication Instructions Recorded Nitroglycerin Sl Tabs [Nitrostat] 0.4 mg SUBLINGUAL Q5M PRN #25 tab 12/03/16 Aspirin 81 mg PO DAILY chew 07/14/18 Atorvastatin [Lipitor] 80 mg PO DAILY #30 tab 07/14/18 Isosorbide Mononitrate ER [Imdur] 30 mg PO DAILY #30 tab.er.24h 07/14/18 Metoprolol Tartrate [Lopressor] 25 mg PO BID #60 tab 07/14/18 Nitroglycerin Sl Tabs [Nitrostat] 0.4 mg SUBLINGUAL Q5M PRN tab 07/14/18 Allergies Allergy/AdvReac Type Severity Reaction Status Date / Time promethazine [From Phenergan] Allergy "MUSCLE Verified 10/20/18 20:32 CONVULSIONS" pregabalin [From Lyrica] AdvReac SUICIDAL Verified 10/20/18 20:32 THOUGHTS VINEGAR AdvReac "SEVERE Uncoded 10/20/18 20:32 HEADACHE, NAUSEA" Review of Systems ROS Statement: Those systems with pertinent positive or pertinent negative responses have been documented in the HPI. ROS Other: All systems not noted in ROS Statement are negative. Past Medical History Past Medical History: Coronary Artery Disease (CAD), Chest Pain / Angina, Diabetes Mellitus, Fibromyalgia, GERD/Reflux, Hyperlipidemia, Hypertension Additional Past Medical History / Comment(s): IBS History of Any Multi-Drug Resistant Organisms: MRSA Date of last positivie culture/infection: 2006 MDRO Source:: buttock and knee cap Past Surgical History: Appendectomy, Cholecystectomy, Heart Catheterization, Heart Catheterization With Stent, Hysterectomy, Orthopedic Surgery Additional Past Surgical History / Comment(s): right knee, hip, elbow and shoulder surgeries Past Anesthesia/Blood Transfusion Reactions: Previous Problems w/ Anesthesia Additional Past Anesthesia/Blood Transfusion Reaction / Comment(s): PAST HX OF HAVING A "HARD TIME WAKING UP" Date of Last Stent Placement:: 11/2016 Past Psychological History: Anxiety, Depression Smoking Status: Former smoker Past Alcohol Use History: Occasional Past Drug Use History: None Reported - Past Family History Mother Family Medical History: Cancer, Diabetes Mellitus Additional Family Medical History / Comment(s): multiple personalities, placental cancer, heart issues Father Family Medical History: Coronary Artery Disease (CAD), Myocardial Infarction (PA) Daughter(s) Additional Family Medical History / Comment(s): severe depression Son(s) Additional Family Medical History / Comment(s): heart issues General Exam Limitations: no limitations General appearance: alert, in no apparent distress Head exam: Present: atraumatic, normocephalic, normal inspection Eye exam: Present: normal appearance, PERRL, EOMI Pupils: Present: normal accommodation ENT exam: Present: normal exam, normal oropharynx, mucous membranes moist, TM's normal bilaterally, normal external ear exam Neck exam: Present: normal inspection, full ROM Respiratory exam: Present: normal lung sounds bilaterally Cardiovascular Exam: Present: regular rate, normal rhythm, normal heart sounds Extremities exam: Present: full ROM (Limited range of motion in the right wrist due to pain. Full range of motion right elbow.), tenderness (Lateral elbow te nderness on palpation. Tenderness at the medial aspect of the right wrist), normal capillary refill, other (+2 ulnar radial pulses). Absent: normal inspection (Erythema and mild edema at the right wrist) Back exam: Present: normal inspection, full ROM Neurological exam: Present: alert, oriented X3 Psychiatric exam: Present: normal affect, normal mood Skin exam: Present: warm, intact, normal color Course Vital Signs 10/20/18 20:30 Temperature 98.0 F Pulse Rate 73 Respiratory 18 Rate Blood Pressure 160/76 O2 Sat by Pulse 97 Oximetry Medical Decision Making - Medical Decision Making Patient is a 43-year-old male presenting to emergency Department with a chief complaint of right arm pain. X-ray of the right elbow and wrist are negative for acute fracture or dislocations. Bar wrap was applied. Patient advised to alternate between Tylenol and ibuprofen for pain control. Patient advised to apply ice compress to minimize symptoms. Patient advised to follow-up with or thopedics if symptoms not improved. Strict return parameters were thoroughly discussed the patient was understanding and agreeable. Case discussed with physician. Disposition Clinical Impression: Sprain of wrist, right Disposition: HOME SELF-CARE Condition: Stable Instructions (If sedation given, give patient instructions): Hand Sprain (ED) Additional Instructions: Alternate between Tylenol and ibuprofen for pain control. Apply ice compress to minimize swelling. Please return to emergency department if symptoms worsen. Please follow with orthopedics. Is patient prescribed a controlled substance at d/c from ED?: No Referrals: Kristel Phipps MD [Primary Care Provider] - 1-2 days Marques Hickman MD [Medical Doctor] - 1-2 days Time of Disposition: 22:04
--- NOTE | 2018-10-20 21:55 | XR ---
PROCEDURE: XR elbow limited RT - 2V DATE AND TIME: 10/20/2018 9:14 PM CLINICAL INDICATION: PHH; Pain after injury TECHNIQUE: AP and lateral views. COMPARISON: None FINDINGS: There is no fracture or malalignment. Multifocal mild-moderate osteoarthritis changes noted . The soft tissues are unremarkable. IMPRESSION: NO ACUTE PROCESS.
--- NOTE | 2018-10-20 21:56 | XR ---
PROCEDURE: XR wrist complete RT - 4V DATE AND TIME: 10/20/2018 9:15 PM CLINICAL INDICATION: PHH; Pain TECHNIQUE: Department protocol COMPARISON: None FINDINGS: There is no fracture or malalignment. Multifocal relatively mild osteoarthritis changes are noted. The soft tissues are unremarkable. IMPRESSION: NO ACUTE PROCESS.
== END 2018-10-20 22:12 | disposition home or self-care (01) ==
LOC: EC 20:03
DX: S63.501A Unspecified sprain of right wrist, initial encounter (principal); Z87.891 Personal history of nicotine dependence; E11.9 Type 2 diabetes mellitus without complications; I25.119 Atherosclerotic heart disease of native coronary artery with unspecified angina pectoris; Z88.8 Allergy status to other drugs, medicaments and biological substances; Z91.048 Other nonmedicinal substance allergy status; Z79.4 Long term (current) use of insulin; Z79.82 Long term (current) use of aspirin; Z95.5 Presence of coronary angioplasty implant and graft; Z98.890 Other specified postprocedural states; W18.41XA Slipping, tripping and stumbling without falling due to stepping on object, initial encounter
CPT/HCPCS: 73070; 73110; 99283; J1885

== ENCOUNTER 2019-02-01 18:47 | Emergency (ER) | payer OTHER ==
[2019-02-01 18:54] VITALS: TEMP 98
[2019-02-01] MEDS ORDERED: SODIUM CHLORIDE 0.9% 1,000 ML IV STA (19:24)
[2019-02-01] MEDS ORDERED: KETOROLAC 30 MG/ML 1 ML VIAL IVP STA (19:24)
[2019-02-01] MEDS ORDERED: diphenhydrAMINE 50 MG/ML 1 ML VIAL IVP STA (19:24)
[2019-02-01] MEDS ORDERED: METOCLOPRAMIDE 5 MG/ML 2 ML VIAL IVP STA (19:24)
--- NOTE | 2019-02-01 19:56 | ED ---
Recheck HPI - General Chief Complaint: Recheck/Abnormal Lab/Rx Stated Complaint: diabetic issue Time Seen by Provider: 02/01/19 18:56 Source: patient Mode of arrival: wheelchair Limitations: no limitations - History of Present Illness Initial Comments: 43-year-old female patient presents to the emergency department today for multiple complaints. Patient states that she presented to [facility] emergency department yesterday for headache and nausea. Patient states that she had low blood pressure upon arrival there and her sugar had been elevated into the 400s. Patient states that they did labs, CT of her brain, and gave her medications. States that she states found her to have leukocytosis and were concerned for possible brain bleed and wanted to perform more testing but she declined. Patient states today her headache persists. States she is having blurred vision with this. She does report nausea. States that she has not vomited but she has felt close. She states she is having upper abdominal discomfort. Denies any constipation or diarrhea. Patient states that she did have a recent increase to her insulin dosage approximately 2 weeks ago. States she went from 6-10 units twice daily. She states that her blood sugars have been high and low. States it was 85 just prior to coming in. 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 She also has history of CAD and has one stent. She denies any chest pain or shortness of breath. Patient denies any recent rash, fever, chills, diarrhea, constipation, back pain, numbness, tingling, dizziness, weakness, hematuria, dysuria, urinary urgency, urinary frequency, or any other complaints. - Related Data Home Medications Medication Instructions Recorded Confirmed Aspirin EC [Ecotrin Low Dose] 81 mg PO DAILY 07/13/18 07/13/18 Insulin Glargine [Lantus] 5 unit SQ BID 07/13/18 07/13/18 Previous Rx's Medication Instructions Recorded Nitroglycerin Sl Tabs [Nitrostat] 0.4 mg SUBLINGUAL Q5M PRN #25 tab 12/03/16 Aspirin 81 mg PO DAILY chew 07/14/18 Atorvastatin [Lipitor] 80 mg PO DAILY #30 tab 07/14/18 Isosorbide Mononitrate ER [Imdur] 30 mg PO DAILY #30 tab.er.24h 07/14/18 Metoprolol Tartrate [Lopressor] 25 mg PO BID #60 tab 07/14/18 Nitroglycerin Sl Tabs [Nitrostat] 0.4 mg SUBLINGUAL Q5M PRN tab 07/14/18 Allergies Allergy/AdvReac Type Severity Reaction Status Date / Time promethazine [From Phenergan] Allergy "MUSCLE Verified 02/01/19 18:54 CONVULSIONS" pregabalin [From Lyrica] AdvReac SUICIDAL Verified 02/01/19 18:54 THOUGHTS Review of Systems ROS Statement: Those systems with pertinent positive or pertinent negative responses have been documented in the HPI. ROS Other: All systems not noted in ROS Statement are negative. Past Medical History Past Medical History: Coronary Artery Disease (CAD), Chest Pain / Angina, Diabetes Mellitus, Fibromyalgia, GERD/Reflux, Hyperlipidemia, Hypertension Additional Past Medical History / Comment(s): IBS History of Any Multi-Drug Resistant Organisms: MRSA Date of last positivie culture/infection: 2006 MDRO Source:: buttock and knee cap Past Surgical History: Appendectomy, Cholecystectomy, Heart Catheterization, Heart Catheterization With Stent, Hysterectomy, Orthopedic Surgery Additional Past Surgical History / Comment(s): right knee, hip, elbow and shoulder surgeries Past Anesthesia/Blood Transfusion Reactions: Previous Problems w/ Anesthesia Additional Past Anesthesia/Blood Transfusion Reaction / Comment(s): PAST HX OF HAVING A "HARD TIME WAKING UP" Date of Last Stent Placement:: 11/2016 Past Psychological History: Anxiety, Depression Smoking Status: Former smoker Past Alcohol Use History: Occasional Past Drug Use History: None Reported - Past Family History Mother Family Medical History: Cancer, Diabetes Mellitus Additional Family Medical History / Comment(s): multiple personalities, placental cancer, heart issues Father Family Medical History: Coronary Artery Disease (CAD), Myocardial Infarction ([place]) Daughter(s) Additional Family Medical History / Comment(s): severe depression Son(s) Additional Family Medical History / Comment(s): heart issues General Exam Limitations: no limitations General appearance: alert, in no apparent distress, other (This is a well- developed, well-nourished adult female patient in no acute distress. Vital signs upon presentation are temperature 98.0F, pulse 95, respirations 16, blood pressure 121/73, pulse ox 100% on room air.) Eye exam: Present: normal appearance, PERRL, EOMI. Absent: scleral icterus, conjunctival injection, periorbital swelling ENT exam: Present: normal exam, normal oropharynx, mucous membranes moist Respiratory exam: Present: normal lung sounds bilaterally. Absent: respiratory distress, wheezes, rales, rhonchi, stridor Cardiovascular Exam: Present: regular rate, normal rhythm, normal heart sounds. Absent: systolic murmur, diastolic murmur, rubs, gallop, clicks GI/Abdominal exam: Present: soft, normal bowel sounds. Absent: distended, tenderness, guarding, rebound, rigid Neurological exam: Present: alert, oriented X3, CN II-XII intact, other (Strength in all 4 extremities is 5/5) Psychiatric exam: Present: normal affect, normal mood Skin exam: Present: warm, dry, intact, normal color. Absent: rash Course Vital Signs 02/01/19 02/01/19 02/01/19 18:51 21:13 22:45 Temperature 98 F Pulse Rate 95 94 78 Respiratory 16 18 18 Rate Blood Pressure 121/73 145/73 138/83 O2 Sat by Pulse 100 99 98 Oximetry Medical Decision Making - Medical Decision Making 43-year-old female patient presents to the emergency department today for evaluation of headache, low blood sugar. Physical examination is unremarkable. She is neurologically intact with no focal deficits. Labs reviewed and did reveal elevated white blood cell count of 14.7. Remainder labs are unrema rkable. CT angiography of the head was obtained and was unremarkable. KUB x- ray was obtained due to complaints of abdominal discomfort showed air-fluid levels, patient does have diarrhea. She is currently sick with upper respiratory infection and bronchitis. Symptoms are felt to be related to viral syndrome. She'll be discharged at this time to follow-up with her primary care physician for recheck in 1-2 days. Return parameters were discussed in detail. She verbalizes understanding and agrees with this plan. - Lab Data Result diagrams: 02/01/19 20:03 02/01/19 20:03 Lab Results 02/01/19 02/01/19 02/01/19 Range/Units 20:03 20:03 20:03 WBC 14.7 H (3.8-10.6) k/uL RBC 4.49 (3.80-5.40) m/uL Hgb 14.0 (11.4-16.0) gm/dL Hct 40.9 (34.0-46.0) % MCV 91.2 (80.0-100.0) fL MCH 31.2 (25.0-35.0) pg MCHC 34.2 (31.0-37.0) g/dL RDW 12.8 (11.5-15.5) % Plt Count 481 H (150-450) k/uL Neutrophils % 71 % Lymphocytes % 22 % Monocytes % 4 % Eosinophils % 2 % Basophils % 0 % Neutrophils # 10.4 H (1.3-7.7) k/uL Lymphocytes # 3.2 (1.0-4.8) k/uL Monocytes # 0.6 (0-1.0) k/uL Eosinophils # 0.3 (0-0.7) k/uL Basophils # 0.1 (0-0.2) k/uL Sodium 142 (137-145) mmol/L Potassium 3.5 (3.5-5.1) mmol/L Chloride 111 H (98-107) mmol/L Carbon Dioxide 18 L (22-30) mmol/L Anion Gap 13 mmol/L BUN 6 L (7-17) mg/dL Creatinine 0.55 (0.52-1.04) mg/dL Est GFR (CKD-EPI)AfAm >90 (>60 ml/min/1.73 sqM) Est GFR (CKD-EPI)NonAf >90 (>60 ml/min/1.73 sqM) Glucose 114 H (74-99) mg/dL Calcium 9.4 (8.4-10.2) mg/dL Total Bilirubin 0.4 (0.2-1.3) mg/dL AST 17 (14-36) U/L ALT 23 (9-52) U/L Alkaline Phosphatase 77 (38-126) U/L Troponin I <0.012 (0.000-0.034) ng/mL Total Protein 8.3 H (6.3-8.2) g/dL Albumin 4.5 (3.5-5.0) g/dL Amylase 74 (30-110) U/L Lipase 233 (23-300) U/L Urine Color Urine Appearance (Clear) Urine pH (5.0-8.0) Ur Specific [place] (1.001-1.035) Urine Protein (Negative) Urine Glucose (UA) (Negative) Urine Ketones (Negative) Urine Blood (Negative) Urine Nitrite (Negative) Urine Bilirubin (Negative) Urine Urobilinogen (<2.0) mg/dL Ur Leukocyte Esterase (Negative) Urine WBC (0-5) /hpf Ur Squamous Epith Cells (0-4) /hpf Urine Bacteria (None) /hpf 02/01/19 Range/Units 20:15 WBC (3.8-10.6) k/uL RBC (3.80-5.40) m/uL Hgb (11.4-16.0) gm/dL Hct (34.0-46.0) % MCV (80.0-100.0) fL MCH (25.0-35.0) pg MCHC (31.0-37.0) g/dL RDW (11.5-15.5) % Plt Count (150-450) k/uL Neutrophils % % Lymphocytes % % Monocytes % % Eosinophils % % Basophils % % Neutrophils # (1.3-7.7) k/uL Lymphocytes # (1.0-4.8) k/uL Monocytes # (0-1.0) k/uL Eosinophils # (0-0.7) k/uL Basophils # (0-0.2) k/uL Sodium (137-145) mmol/L Potassium (3.5-5.1) mmol/L Chloride (98-107) mmol/L Carbon Dioxide (22-30) mmol/L Anion Gap mmol/L BUN (7-17) mg/dL Creatinine (0.52-1.04) mg/dL Est GFR (CKD-EPI)AfAm (>60 ml/min/1.73 sqM) Est GFR (CKD-EPI)NonAf (>60 ml/min/1.73 sqM) Glucose (74-99) mg/dL Calcium (8.4-10.2) mg/dL Total Bilirubin (0.2-1.3) mg/dL AST (14-36) U/L ALT (9-52) U/L Alkaline Phosphatase (38-126) U/L Troponin I (0.000-0.034) ng/mL Total Protein (6.3-8.2) g/dL Albumin (3.5-5.0) g/dL Amylase (30-110) U/L Lipase (23-300) U/L Urine Color Yellow Urine Appearance Cloudy H (Clear) Urine pH 5.5 (5.0-8.0) Ur Specific [place] 1.018 (1.001-1.035) Urine Protein Negative (Negative) Urine Glucose (UA) Negative (Negative) Urine Ketones 1+ H (Negative) Urine Blood Negative (Negative) Urine Nitrite Negative (Negative) Urine Bilirubin Negative (Negative) Urine Urobilinogen <2.0 (<2.0) mg/dL Ur Leukocyte Esterase Large H (Negative) Urine WBC 1 (0-5) /hpf Ur Squamous Epith Cells 3 (0-4) /hpf Urine Bacteria Rare H (None) /hpf - EKG Data -: EKG Interpreted by Me EKG Comments: EKG obtained at 1935 shows normal sinus rhythm with a ventricular rate of 80, IN interval 166, QRS duration 94, QT 380, QTc 438. No evidence of ST elevation or depression. - Radiology Data Radiology results: report reviewed, image reviewed KUB x-ray was obtained. Report was reviewed in its entirety. Impression by Dr. Warner shows mom small bowel intestinal fluid levels are nonspecific and could relate to partial obstruction or ileus. CT angiography of the head was obtained. Report was reviewed in its entirety. Impression by Dr. Warner shows normal CT angiogram of the brain. Normal noncontrast computed tomography scan of the brain. Disposition Clinical Impression: Headache, Viral syndrome Disposition: HOME SELF-CARE Condition: Good Instructions (If sedation given, give patient instructions): Acute Headache (ED), Viral Syndrome (ED) Additional Instructions: Increase fluids. Rest. Follow-up through primary care physician for recheck in 1-2 days. Return to the emergency department immediately for any new, worsening, or concerning symptoms. Is patient prescribed a controlled substance at d/c from ED?: No Referrals: Danny Joshi [Primary Care Provider] - 1-2 days Time of Disposition: 23:29
[2019-02-01 20:23] LABS: Basophils # (A) 0.1 k/uL (0-0.2); Basophils % (A) 0 %; Eosinophils # (A) 0.3 k/uL (0-0.7); Eosinophils % (A) 2 %; HCT 40.9 % (34.0-46.0); Lymphocytes # (A) 3.2 k/uL (1.0-4.8); Lymphocytes % (A) 22 %; MCH 31.2 pg (25.0-35.0); MCHC 34.2 g/dL (31.0-37.0); MCV 91.2 fL (80.0-100.0); Mean Platelet Volume 6.1; Monocytes # (A) 0.6 k/uL (0-1.0); Monocytes % (A) 4 %; Neutrophils # (A) 10.4 k/uL (1.3-7.7); Neutrophils % (A) 71 %; Platelet Count 481 k/uL (150-450); RBC 4.49 m/uL (3.80-5.40); RDW 12.8 % (11.5-15.5); WBC 14.7 k/uL (3.8-10.6)
[2019-02-01 20:35] LABS: ALT 23 U/L (9-52); AST 17 U/L (14-36); African American GFR (CKD) >90 (>60 ml/min/1.73 sqM); Albumin 4.5 g/dL (3.5-5.0); Alkaline Phosphatase 77 U/L (38-126); Amylase 74 U/L (30-110); Anion Gap 13 mmol/L; Blood Urea Nitrogen 6 mg/dL (7-17); Calcium 9.4 mg/dL (8.4-10.2); Carbon Dioxide 18 mmol/L (22-30); Chloride 111 mmol/L (98-107); Glucose 114 mg/dL (74-99); Non-African American GFR(CKD) >90 (>60 ml/min/1.73 sqM); Potassium 3.5 mmol/L (3.5-5.1); Sodium 142 mmol/L (137-145); Total Bilirubin 0.4 mg/dL (0.2-1.3); Total Protein 8.3 g/dL (6.3-8.2)
--- NOTE | 2019-02-01 20:44 | XR ---
EXAMINATION TYPE: XR KUB DATE OF EXAM: 02/01/2019 COMPARISON: NONE HISTORY: Abdominal pain TECHNIQUE: 2 views FINDINGS: There are some small bowel fluid levels. There is no sign of free air. Lung bases are clear . There are clips from cholecystectomy. There is no evidence of a mass. IMPRESSION: There are some small bowel intestinal fluid levels that are nonspecific and could relate to partial obstruction or ileus.
[2019-02-01 21:15] VITALS: RESP 18
[2019-02-01] MEDS ORDERED: HYDROmorphone 1 MG/ML 1 ML SYRINGE IVP STA (22:23)
[2019-02-01 22:24] LABS: Appearance,Urine Cloudy (Clear); Bilirubin,Urine Negative (Negative); Blood,Urine Negative (Negative); Color,Urine Yellow; Glucose,Urine (UA) Negative (Negative); Ketones,Urine 1+ (Negative); Leukocyte Esterase,Urine Large (Negative); Nitrite,Urine Negative (Negative); PH, Urine 5.5 (5.0-8.0); Protein,Urine Negative (Negative); Specific Gravity,Urine 1.018 (1.001-1.035); Urobilinogen,Urine <2.0 mg/dL (<2.0)
[2019-02-01 22:37] LABS: Bacteria,Urine Rare /hpf; Squamous Epithelial Cell,Urine 3 /hpf (0-4)
[2019-02-01] MEDS ORDERED: SODIUM CHLORIDE 0.9% 500 ML 500 ML IV ONE (22:42)
[2019-02-01 22:46] VITALS: BP 138/83; PULSE 78
--- NOTE | 2019-02-01 23:22 | CT ---
EXAMINATION TYPE: CT angio head DATE OF EXAM: 02/01/2019 11:10 PM COMPARISON: HISTORY: Headache CT DLP: 2154.4 mGycm Automated exposure control for dose reduction was used. TECHNIQUE: Performed with IV Contrast, patient injected with 100 mL of Isovue 370. . FINDINGS: Multiple axial sections were obtained without and with IV contrast. There are 3-D post processed imag es. Noncontrast exam shows no mass effect nor midline shift. There is no sign of intracranial hemorrhage. There is no sign of cerebral edema. There is arterial flow in the vertebrobasilar artery system. There is arterial flow in the anterior m iddle and posterior cerebral arteries. There is no mass effect. There is no evidence of intracranial aneurysm or neovascularity. I see no evidence of intracranial arterial stenosis. There is arterial fl ow in both intracranial internal carotid arteries. IMPRESSION: NORMAL CT ANGIOGRAM OF THE BRAIN. NORMAL NONCONTRAST CT SCAN OF THE BRAIN.
== END 2019-02-01 23:48 | disposition home or self-care (01) ==
LOC: EC 18:47
DX: B34.9 Viral infection, unspecified (principal); E11.649 Type 2 diabetes mellitus with hypoglycemia without coma; D72.829 Elevated white blood cell count, unspecified; J40 Bronchitis, not specified as acute or chronic; R51 Headache; I25.119 Atherosclerotic heart disease of native coronary artery with unspecified angina pectoris; I10 Essential (primary) hypertension; Z79.4 Long term (current) use of insulin; Z79.82 Long term (current) use of aspirin; Z88.8 Allergy status to other drugs, medicaments and biological substances; Z95.5 Presence of coronary angioplasty implant and graft; Z83.3 Family history of diabetes mellitus; Z87.891 Personal history of nicotine dependence; Z85.3 Personal history of malignant neoplasm of breast; Z86.14 Personal history of Methicillin resistant Staphylococcus aureus infection
CPT/HCPCS: 36415; 93005; 80053; 82150; 83690; 84484; 85025; 81001; 74018; 70496; 99285; 96374; 96375 ×3; 96361 ×4; J1200; J2765; J1885; J1170; Q9967

== ENCOUNTER → 2019-04-13 | Outpatient (CLI) | payer OTHER ==
--- NOTE | 2019-04-13 16:20 | XR ---
EXAMINATION TYPE: XR shoulder complete LT DATE OF EXAM: 04/13/2019 CLINICAL HISTORY: Left shoulder pain. TECHNIQUE: Three views of the left shoulder are obtained. COMPARISON: None. FINDINGS: There is no acute fracture/dislocation evident in the left shoulder. Moderate narrowing wi th subchondral cystic change at acromioclavicular joint with mild inferior spurring. Glenohumeral essence int shows mild narrowing with subchondral cystic change and spurring inferior osseous glenoid thought present. The visualized ribs are intact and unremarkable. IMPRESSION: As above.
--- NOTE | 2019-04-13 16:21 | XR ---
EXAMINATION TYPE: XR thoracic spine 2V DATE OF EXAM: 04/13/2019 CLINICAL HISTORY: Thoracic back pain. TECHNIQUE: Frontal, lateral, and swimmer's view of thoracic spine are obtained. COMPARISON: None. FINDINGS: Thoracic spine show satisfactory alignment without evidence of acute fracture or dislocatio n. Vertebral body heights and disc space heights are preserved. Mild to minimal multilevel anterior lateral spurring. Visualized ribs are unremarkable bilaterally. Overlying Bra strap is noted. IMPRESSION: As above.
== END | disposition home or self-care (01) ==
LOC: RADXRMAIN 15:45
PROVIDERS: ATTEND Family Medicine
DX: M46.04 Spinal enthesopathy, thoracic region (principal); M75.82 Other shoulder lesions, left shoulder; M25.812 Other specified joint disorders, left shoulder
CPT/HCPCS: 72070

== ENCOUNTER 2023-08-31 17:29 | Emergency (ER) | payer OTHER ==
[2023-08-31 17:51] VITALS: BP 146/86; PULSE 82; RESP 18; TEMP 98.1
--- NOTE | 2023-08-31 18:33 | ED ---
Chest Pain HPI - General Chief Complaint: Chest Pain Stated Complaint: Chest/Head Pain Time Seen by Provider: 08/31/23 18:28 Source: patient, RN notes reviewed Mode of arrival: ambulatory Limitations: no limitations - History of Present Illness Initial Comments: Quick [id number] female with history of CAD, diabetes melitis, hyperlipidemia, and hypertension presenting to the ER with chief complaint of chest pain x 2 hours. States pain radiates down left arm and onto left side of face. She states she is here visiting family and she has been under a lot of stress. She was eating a meal today when shortly after this pain began. She does have a history of CAD with stent placement however has been off all of her medications due to insurance issues. - Related Data Home Medications Medication Instructions Recorded Confirmed Aspirin EC [Ecotrin Low Dose] 81 mg PO DAILY 07/13/18 07/13/18 Insulin Glargine [Lantus Vial] 5 unit SQ BID 07/13/18 07/13/18 Previous Rx's Medication Instructions Recorded Nitroglycerin Sl Tabs [Nitrostat] 0.4 mg SUBLINGUAL Q5M PRN #25 tab 12/03/16 Aspirin 81 mg PO DAILY chew 07/14/18 Atorvastatin [Lipitor] 80 mg PO DAILY #30 tab 07/14/18 Isosorbide Mononitrate ER [Imdur] 30 mg PO DAILY #30 tab.er.24h 07/14/18 Metoprolol Tartrate [Lopressor] 25 mg PO BID #60 tab 07/14/18 Nitroglycerin Sl Tabs [Nitrostat] 0.4 mg SUBLINGUAL Q5M PRN tab 07/14/18 Allergies Allergy/AdvReac Type Severity Reaction Status Date / Time promethazine [From Phenergan] Allergy "MUSCLE Verified 08/31/23 17:51 CONVULSIONS" pregabalin [From Lyrica] AdvReac SUICIDAL Verified 08/31/23 17:51 THOUGHTS Review of Systems ROS Statement: Those systems with pertinent positive or pertinent negative responses have been documented in the HPI. ROS Other: All systems not noted in ROS Statement are negative. Past Medical History Past Medical History: Coronary Artery Disease (CAD), Chest Pain / Angina, Diabetes Mellitus, Fibromyalgia, GERD/Reflux, Hyperlipidemia, Hypertension Additional Past Medical History / Comment(s): IBS History of Any Multi-Drug Resistant Organisms: MRSA Date of last positivie culture/infection: 2006 MDRO Source:: buttock and knee cap Past Surgical History: Appendectomy, Cholecystectomy, Heart Catheterization, Heart Catheterization With Stent, Hysterectomy, Orthopedic Surgery Additional Past Surgical History / Comment(s): right knee, hip, elbow and shoulder surgeries Past Anesthesia/Blood Transfusion Reactions: Previous Problems w/ Anesthesia Additional Past Anesthesia/Blood Transfusion Reaction / Comment(s): PAST HX OF HAVING A "HARD TIME WAKING UP" Date of Last Stent Placement:: 11/2016 Past Psychological History: Anxiety, Depression Smoking Status: Current every day smoker Past Alcohol Use History: Occasional Past Drug Use History: None Reported - Past Family History Mother Family Medical History: Cancer, Diabetes Mellitus Additional Family Medical History / Comment(s): multiple personalities, placental cancer, heart issues Father Family Medical History: Coronary Artery Disease (CAD), Myocardial Infarction ([place]) Daughter(s) Additional Family Medical History / Comment(s): severe depression Son(s) Additional Family Medical History / Comment(s): heart issues General Exam - General Exam Comments Initial Comments: Visual Physical Exam Vital signs reviewed General: Well-appearing, nontoxic, no acute distress. Head: Normocephalic, atraumatic Eyes: PERRLA, EOMI ENT: Airway patent Chest: Nonlabored breathing Skin: No visual rash, normal skin tone Neuro: Alert and oriented 3 Musculoskeletal: No gross abnormalities Limitations: no limitations Course Vital Signs 08/31/23 17:48 Temperature 98.1 F Pulse Rate 82 Respiratory 18 Rate Blood Pressure 146/86 O2 Sat by Pulse 99 Oximetry Chest Pain MDM - MDM I completed the quick note portion of this chart signed Santa Penaloza PA-C Patient left AGAINST MEDICAL ADVICE before workup was complete. Disposition Clinical Impression: Chest pain Disposition: LEFT AGAINST MEDICAL ADVICE Referrals: None,Stated [Primary Care Provider] - 1-2 days
== END 2023-08-31 21:52 | disposition left against medical advice (07) ==
LOC: EC 17:29
DX: R07.9 Chest pain, unspecified (principal); F17.200 Nicotine dependence, unspecified, uncomplicated; Z53.29 Procedure and treatment not carried out because of patient's decision for other reasons; Z88.8 Allergy status to other drugs, medicaments and biological substances
CPT/HCPCS: 93005; 99284